=== PATIENT | female | born 1955 | race Caucasian/White ===

== ENCOUNTER → 2017-07-25 | Outpatient (CLI) | payer BC | END | disposition home or self-care (01) | LOC: LABWHC1 14:31 | PROVIDERS: ATTEND Internal Medicine Endocrinology, Diabetes & Metabolism | DX: R53.83 Other fatigue (principal) | CPT/HCPCS: 36415; 82024; 82533; 82607; 84146; 84443 ==

== ENCOUNTER → 2017-09-04 | Outpatient (CLI) | payer BC | END | disposition home or self-care (01) | LOC: LABWHC1 07:40 | PROVIDERS: ATTEND Internal Medicine Endocrinology, Diabetes & Metabolism | DX: R53.83 Other fatigue (principal) | CPT/HCPCS: 36415; 84443 ==

== ENCOUNTER → 2018-02-18 | Outpatient (CLI) | payer BC ==
--- NOTE | 2018-02-18 16:02 | US ---
EXAMINATION TYPE: US pelvic complete DATE OF EXAM: 02/18/2018 COMPARISON: CT 2016 CLINICAL HISTORY: R14.0 abd bloating/distention; hysterectomy; patient stated still has ovaries, and had bladder and bowel suspension with mesh; 2 months prior felt ripping sensation right pelvis to lef t pelvis; UTI TECHNIQUE: Transvaginal (TV) and Transabdominal (TA) . Transabdominal sonographic images of the pel vis were acquired. Transvaginal sonographic images were medically necessary to better assess the fol lowing anatomy: ovaries. Date of LMP: NA EXAM MEASUREMENTS: Uterus: surgically removed Endometrial Stripe: surgically removed Right Ovary: 1.7 x 1.5 x 1.5 cm Left Ovary: not seen TA or TV US 1. Right Ovary: large cyst = 1.4 x 1.2 x 1.3cm with mural wall changes; color flow is seen in periph antonietta however, PW Doppler not well assessed due to small vessels in ovary 2. Left Ovary: not seen 3. Bilateral Adnexa: wnl 4. Posterior cul-de-sac: wnl IMPRESSION: 1. Complex cyst right ovary with mural nodularity. Short-term follow-up study in 6 weeks is advised.
== END | disposition home or self-care (01) ==
LOC: RADUSWWP 15:01
PROVIDERS: ATTEND Family Medicine
DX: N83.291 Other ovarian cyst, right side (principal)
CPT/HCPCS: 76830; 76856

== ENCOUNTER → 2018-04-02 | Outpatient (CLI) | payer BC ==
--- NOTE | 2018-04-02 08:36 | XR ---
Right knee HISTORY: Pain and swelling, osteoarthritis 3 views of the right knee on 4 images There is tricompartmental marginal spurring. Joint space loss is present additionally. There may be a joint effusion. Subchondral sclerosis present in the lateral compartment more than medial. Alignment and bone mineralization are maintained. IMPRESSION: Osteoarthritis.
--- NOTE | 2018-04-02 12:32 | US ---
EXAMINATION TYPE: US pelvis complete transvag DATE OF EXAM: 04/02/2018 COMPARISON: US 02/18/2018 CLINICAL HISTORY: R10.9 Abd Pain, N83.291 Ovarian Cyst,M17.1 OA. TECHNIQUE: . Transabdominal sonographic images of the pelvis were acquired. Transvaginal sonographi c images were medically necessary to better assess the following anatomy: Ovaries Date of LMP: 10-12 years ago EXAM MEASUREMENTS: Uterus: Surgically absent Endometrial Stripe: Surgically absent Right Ovary: 1.3 x 0.9 x 1.3 cm Left Ovary: 2.1 x 1.0 x 1.7 cm 1. Uterus: Surgically absent 2. Endometrium: Surgically absent 3. Right Ovary: Within the right adnexa, there is an area that appears to be right ovary with small follicles visualized. Adjacent to this area, there is a thick walled cystic area visualized measuring 1.4 x 1.3 x 1.3 cm. This area previously measured 1.4 x 1.2 x 1.3 cm on 02/18/2018. The nodularity wit hin the internal wall remains present and stable. 4. Left Ovary: wnl as visualized, not visualized transvaginally 5. Bilateral Adnexa: wnl 6. Posterior cul-de-sac: wnl IMPRESSION: 1. Stable complex cyst right adnexal region. Neoplasm is not excluded. Consider additional workup.
--- NOTE | 2018-04-02 12:33 | US ---
EXAMINATION TYPE: US abdomen complete DATE OF EXAM: 04/02/2018 COMPARISON: CT 11/07/2016 CLINICAL HISTORY: R10.9 Abd Pain, N83.291 Ovarian Cyst,M17.1 OA. EXAM MEASUREMENTS: Liver Length: 15.3 cm Gallbladder Wall: 0.2 cm CBD: 0.45 cm Spleen: 9.3 cm Right Kidney: 10.1 x 4.6 x 4.1 cm Left Kidney: 10.1 x 5.1 x 5.1 cm Pancreas: Body/Tail obscured by overlying bowel gas. Visualized portions show no abnormalities Liver: Coarse, heterogeneous echotexture. Cyst visualized right lobe measuring 0.7 x 0.9 x 0.7 cm Gallbladder: wnl Evidence for sonographic Zuleta's sign: No CBD: wnl as visualized, distal portion obscured by bowel gas Spleen: wnl Right Kidney: No hydronephrosis or masses seen Left Kidney: No hydronephrosis or masses seen Upper IVC: wnl Abd Aorta: wnl as visualized, limited due to overlying bowel gas The liver is coarse and heterogeneous. IMPRESSION: 1. Small subcentimeter hepatic cyst. 2. Very mild fatty infiltration within the liver.
== END | disposition home or self-care (01) ==
LOC: RADUSWWP 07:53
PROVIDERS: ATTEND Family Medicine
DX: K76.89 Other specified diseases of liver (principal); K76.0 Fatty (change of) liver, not elsewhere classified; N83.8 Other noninflammatory disorders of ovary, fallopian tube and broad ligament; M17.11 Unilateral primary osteoarthritis, right knee
CPT/HCPCS: 76700; 76830; 76856

== ENCOUNTER → 2018-04-16 | Outpatient (CLI) | payer BC | END | disposition home or self-care (01) | LOC: LABWHC1 07:55 | PROVIDERS: ATTEND Internal Medicine Endocrinology, Diabetes & Metabolism | DX: E03.8 Other specified hypothyroidism (principal) | CPT/HCPCS: 36415; 84443 ==

== ENCOUNTER → 2018-06-03 | Outpatient (CLI) | payer BC | END | disposition home or self-care (01) | LOC: LABWHC1 09:56 | PROVIDERS: ATTEND Internal Medicine Endocrinology, Diabetes & Metabolism | DX: E03.8 Other specified hypothyroidism (principal) | CPT/HCPCS: 36415; 84443 ==

== ENCOUNTER → 2018-06-10 | Outpatient (CLI) | payer BC ==
--- NOTE | 2018-06-10 11:59 | XR ---
EXAM TYPE: LUMBAR SPINE X RAY SERIES COMPARISON: NONE HISTORY: Pain TECHNIQUE: 4 views are submitted. FINDINGS: Alignment is anatomic. The pedicles are intact. The transverse processes are intact. There is no s pondylolysis or spondylolisthesis. Bilateral changes of sacroiliitis. Degenerative disc disease at a ll levels most marked at L3-4, L4-5, and L5-S1 with facet arthropathy. IMPRESSION: 1. Multilevel degenerative disc disease and facet arthropathy with most marked changes at levels L3-S 1. Foraminal encroachment suspected. Correlate with MRI as clinically warranted. 2. Correlate for sacroiliitis.
== END | disposition home or self-care (01) ==
LOC: RADXRMAIN 11:26
PROVIDERS: ATTEND Family Medicine
DX: M51.37 Other intervertebral disc degeneration, lumbosacral region (principal); M46.97 Unspecified inflammatory spondylopathy, lumbosacral region
CPT/HCPCS: 72100

== ENCOUNTER → 2018-06-17 | Outpatient (CLI) | payer BC ==
--- NOTE | 2018-06-17 16:21 | CT ---
EXAMINATION TYPE: CT lumbar spine w con DATE OF EXAM: 06/17/2018 COMPARISON: 06/10/2018 lumbar spine radiographs. HISTORY: LOWER BACK PAIN AFTER FALL INJURY X [address] DLP: 1709.3 mGycm Automated exposure control for dose reduction was used. CONTRAST: CT scan of the lumbar is performed with IV Contrast, patient injected with 100 mL of Isovue 300. Enhanced CT of the lumbar spine was performed. Bone and soft tissue window settings are submitted as well as coronal and sagittal reconstructions. FINDINGS: There is very mild anterolisthesis (grade 1) of L4 on L5, likely on a degenerative basis. T here is no evidence of acute fracture or vertebral body height loss of the lumbar spine. Intervertebr al disc desiccation is seen at L4-L5 and L5-S1 with vacuum disc phenomenon. Lobulated Contour the kid neys may relate to prior injury or persistent lobulation. Spinal canal is limited on CT as is e valuation for focal disc herniation. L1-L2: Normal disc space height. No disc herniation protrusion or central stenosis. No facet joint arthropathy. No evidence for foraminal encroachment. L2-L3: There is a small broad-based disc bulge without spinal canal stenosis. There is resultant very mild neural foraminal narrowing bilaterally. L3-L4: There is a broad-based disc bulge and facet arthropathy resulting in mild bilateral neural for aminal narrowing, right slightly greater than left. No significant spinal canal stenosis. L4-L5: There is disc uncovering and a broad-based disc bulge with facet arthropathy resulting in mild to moderate bilateral neural foraminal narrowing. L5-S1: There is facet arthropathy and small posterior osteophyte in addition to a left eccentric disc bulge creating severe left neural foraminal narrowing and mild right neuroforaminal narrowing withou t significant spinal canal stenosis. IMPRESSION: 1. Multilevel degenerative disc disease resulting in severe left neural foraminal narrowing at L5-S1 and mild neural foraminal narrowing at this level. Other variable degree neural foraminal narrowing a s described above however would be more accurately assessed with MRI. 2. Grade 1 very mild anterolisthesis of L4 on L5, likely on a degenerative basis with no evidence of acute fracture of the lumbar spine.
== END | disposition home or self-care (01) ==
LOC: RADCTMAIN 14:50
PROVIDERS: ATTEND Family Medicine
DX: M99.73 Connective tissue and disc stenosis of intervertebral foramina of lumbar region (principal); M99.74 Connective tissue and disc stenosis of intervertebral foramina of sacral region; M43.16 Spondylolisthesis, lumbar region
CPT/HCPCS: 72132; Q9967

== ENCOUNTER → 2018-07-04 | Outpatient (CLI) | payer BC ==
--- NOTE | 2018-07-05 11:16 | BD ---
EXAMINATION TYPE: Axial Bone Density DATE OF EXAM: 07/04/2018 COMPARISON: NONE CLINICAL HISTORY: Height: 5 ft 5 in Weight: 230 FRAX RISK QUESTIONS: History of Fracture in Adulthood: yes RISK FACTORS HISTORY OF: Family History of Osteoporosis: YES Postmenopausal woman: PART HYST AGE 53 Take estrogen and/or progesterone medications: WAS ON HRT PATCH FOR ONE YEAR AFTER HYST Poor Health: YES MEDICATIONS: Thyroid Medications: YES Which medication: SYNTHROID How Lon MONTHS Additional Medications: SYNTHROID, TENORMIN, LASIX, MOBIC, POTASSIUM CHLORIDE, AMBIEN, ZAROXOLYN METO LAZONE Additional History: EXAM MEASUREMENTS: Bone mineral densitometry was performed using the [employer] System. Bone mineral density as measured about the Lumbar spine is: ----- L1-L4(G/cm2): 1.152 T Score Values are as follows: ----- L2: -0.4 ----- L3: -0.2 ----- L4: 0.2 ----- L1-L4: -0.2 Bone mineral density has: DECREASED -3.2 % since study of: 2006 Bone mineral density about the R hip (g/cm2): 0.901 Bone mineral density about the L hip (g/cm2): 0.912 T Score values are as follows: -----R Neck: -1.0 -----L Neck: -0.9 -----R Total: -0.1 -----L Total: 0.0 Bone mineral density has: DECREASED -9.4 % since study of: 2006 IMPRESSION: No evidence for osteoporosis or osteopenia. NOTE: T-SCORE=SD OF THE YOUNG ADULT MEAN.
--- NOTE | 2018-07-08 10:04 | MM ---
Reason for exam: screening (asymptomatic). Last mammogram was performed 2 years ago. History: Patient is postmenopausal. Family history of breast cancer in 2 paternal aunts. Took estrogen for 5 years beginning at age 50. Took progesterone for 5 years beginning at age 50. Physical Findings: A clinical breast exam by your physician is recommended on an annual basis and results should be correlated with mammographic findings. MG 3D Screening Mammo W/Cad Bilateral CC and MLO view(s) were taken. Prior study comparison: July 04, 2016, bilateral MG screening mammo w CAD. April 02, 2014, bilateral MG screening mammo w CAD. The breast tissue is heterogeneously dense. This may lower the sensitivity of mammography. Stable benign calcifications. There is no discrete abnormality. No significant changes when compared with prior studies. ASSESSMENT: Benign, BI-RAD 2 RECOMMENDATION: Routine screening mammogram of both breasts in 1 year.
== END | disposition home or self-care (01) ==
LOC: RADMAMWWP 12:44
PROVIDERS: ATTEND Obstetrics & Gynecology
DX: Z12.31 Encounter for screening mammogram for malignant neoplasm of breast (principal); Z13.820 Encounter for screening for osteoporosis; N95.1 Menopausal and female climacteric states
CPT/HCPCS: 77063; 77067; 77080

== ENCOUNTER → 2018-12-03 | Outpatient (CLI) | payer BC ==
[2018-12-03 17:43] LABS: T4, Free (Free Thyroxine) 1.7 ng/dL (0.80-1.80)
== END ==
LOC: LABWHC1 08:10
PROVIDERS: ATTEND Internal Medicine Endocrinology, Diabetes & Metabolism
DX: E03.8 Other specified hypothyroidism (principal)
CPT/HCPCS: 36415; 84439; 84443

== ENCOUNTER → 2019-02-11 | Outpatient (CLI) | payer MEDICARE | END | disposition home or self-care (01) | LOC: LABWHC1 07:43 | PROVIDERS: ATTEND Internal Medicine Endocrinology, Diabetes & Metabolism | DX: E03.8 Other specified hypothyroidism (principal) | CPT/HCPCS: 36415; 84443 ==

== ENCOUNTER 2019-03-13 10:12 | Inpatient (IN) | payer MEDICARE ==
[2019-03-13] MEDS ORDERED: IPRATROPIUM-ALBUTEROL 3 ML NEB INHALATION PRN (11:13)
--- NOTE | 2019-03-13 11:57 | XR ---
EXAMINATION TYPE: XR chest 2V DATE OF EXAM: 03/13/2019 COMPARISON: Prior chest x-ray 03/08/2015 HISTORY: Cough, difficulty breathing TECHNIQUE: Frontal and lateral views of the chest are obtained. FINDINGS: The patient is rotated. Prominent lung volume could be indicative of underlying COPD. Quest ion some posterior basilar airspace disease. Heart size within normal limits. No evident pleural effu fredo. Bronchial wall thickening is present. Pulmonary vascularity and blas within normal limits. IMPRESSION: Possible lower lobe pneumonia, bronchitis. Rotated exam.
[2019-03-13 12:10] LABS: Albumin 4.2 g/dL (3.5-5.0); Calcium 9.2 mg/dL (8.4-10.2); Potassium 3.3 mmol/L (3.5-5.1); Total Bilirubin 0.6 mg/dL (0.2-1.3); Total Protein 6.8 g/dL (6.3-8.2)
[2019-03-13 12:17] LABS: Basophils # (A) 0.1 k/uL (0-0.2); Basophils % (A) 1 %; Eosinophils # (A) 0.4 k/uL (0-0.7); Eosinophils % (A) 7 %; HGB 12.5 gm/dL (11.4-16.0); Lymphocytes # (A) 1.3 k/uL (1.0-4.8); Lymphocytes % (A) 20 %; MCH 29.9 pg (25.0-35.0); MCV 93.5 fL (80.0-100.0); Mean Platelet Volume 6.4; Monocytes # (A) 0.5 k/uL (0-1.0); Monocytes % (A) 8 %; Neutrophils # (A) 4.3 k/uL (1.3-7.7); Neutrophils % (A) 63 %; Platelet Count 259 k/uL (150-450); RBC 4.17 m/uL (3.80-5.40); RDW 13.2 % (11.5-15.5); WBC 6.8 k/uL (3.8-10.6)
[2019-03-13] MEDS: AZITHROMYCIN 500 MG in SODIUM CHLORIDE 0.9% 250 ML IVPB SCH (12:40)
[2019-03-13] MEDS: SODIUM CHLORIDE 0.9% 1,000 ML IV SCH (12:40)
[2019-03-13 13:33] VITALS: BMI 38.0
[2019-03-13] MEDS: methylPREDNISolone SOD SUCCI 125 MG/2 ML VIAL IV SCH (16:07)
[2019-03-13 17:27] LABS: Glucose,Whole Blood 101 mg/dL (75-99)
[2019-03-13] MEDS: INSULIN ASPART (NovoLOG) 100 UNIT/ML VIAL SQ SCH ×2 (17:50→20:45)
[2019-03-13 20:25] LABS: Glucose,Whole Blood 141 mg/dL (75-99)
[2019-03-13] MEDS: ZOLPIDEM 5 MG TAB PO PRN (20:45)
[2019-03-13] MEDS: ATENOLOL 25 MG TAB PO SCH (20:46)
[2019-03-13 22:00] LABS: Appearance,Urine Clear (Clear); Bacteria,Urine Rare /hpf; Bilirubin,Urine Negative (Negative); Blood,Urine Negative (Negative); Color,Urine Yellow; Glucose,Urine (UA) Negative (Negative); Ketones,Urine Trace (Negative); Leukocyte Esterase,Urine Trace (Negative); Mucus,Urine Rare /hpf; Nitrite,Urine Negative (Negative); Protein,Urine Negative (Negative); RBC,Urine 1 /hpf (0-5); Specific Gravity,Urine 1.013 (1.001-1.035); Squamous Epithelial Cell,Urine 1 /hpf (0-4); Urobilinogen,Urine <2.0 mg/dL (<2.0); WBC,Urine 1 /hpf (0-5)
[2019-03-14] MEDS: SODIUM CHLORIDE 0.9% 1,000 ML IV SCH ×2 (01:00→14:08)
[2019-03-14] MEDS: methylPREDNISolone SOD SUCCI 125 MG/2 ML VIAL IV SCH ×4 (01:00→23:18)
[2019-03-14] MEDS: LEVOTHYROXINE 100 MCG TAB PO SCH (05:38)
[2019-03-14 07:29] LABS: Glucose,Whole Blood 159 mg/dL (75-99)
[2019-03-14] MEDS: INSULIN ASPART (NovoLOG) 100 UNIT/ML VIAL SQ SCH ×4 (08:25→21:34)
[2019-03-14] MEDS: ATENOLOL 25 MG TAB PO SCH ×2 (08:25→21:35)
[2019-03-14] MEDS: CHOLECALCIFEROL 1,000 UNIT TAB PO SCH (08:25)
[2019-03-14] MEDS: POTASSIUM CHLORIDE ER 10 MEQ TAB.ER.PRT PO SCH (08:25)
[2019-03-14] MEDS: FUROSEMIDE 80 MG TAB PO SCH ×2 (08:25→16:23)
[2019-03-14] MEDS: ASCORBIC ACID 500 MG TAB PO SCH (08:25)
[2019-03-14] MEDS: PANTOPRAZOLE 40 MG TABLET PO SCH (08:25)
[2019-03-14] MEDS: MELOXICAM 7.5 MG TAB PO SCH (08:25)
[2019-03-14] MEDS ORDERED: NON-FORMULARY DRUG (Garlic [Garlic] 1 TAB) PO SCH (09:00)
[2019-03-14] MEDS: AZITHROMYCIN 500 MG in SODIUM CHLORIDE 0.9% 250 ML IVPB SCH (09:07)
[2019-03-14 10:25] LABS: ALT 26 U/L (9-52); AST 28 U/L (14-36); Albumin 3.8 g/dL (3.5-5.0); Alkaline Phosphatase 94 U/L (38-126); Anion Gap 9 mmol/L; Blood Urea Nitrogen 14 mg/dL (7-17); Calcium 9.4 mg/dL (8.4-10.2); Carbon Dioxide 25 mmol/L (22-30); Chloride 105 mmol/L (98-107); Glucose 218 mg/dL (74-99); Potassium 3.5 mmol/L (3.5-5.1); Sodium 139 mmol/L (137-145); Total Bilirubin 0.4 mg/dL (0.2-1.3); Total Protein 6.4 g/dL (6.3-8.2)
[2019-03-14 10:42] LABS: Basophils % (A) 0 %; Eosinophils % (A) 0 %; HCT 37.6 % (34.0-46.0); HGB 12.7 gm/dL (11.4-16.0); Lymphocytes % (A) 13 %; MCH 31.4 pg (25.0-35.0); MCHC 33.9 g/dL (31.0-37.0); MCV 92.7 fL (80.0-100.0); Monocytes # (A) 0.1 k/uL (0-1.0); Monocytes % (A) 1 %; Neutrophils # (A) 6.6 k/uL (1.3-7.7); Neutrophils % (A) 84 %; Platelet Count 286 k/uL (150-450); RBC 4.05 m/uL (3.80-5.40); RDW 13.5 % (11.5-15.5); WBC 7.8 k/uL (3.8-10.6)
--- NOTE | 2019-03-14 11:42 | HP ---
HISTORY AND PHYSICAL CHIEF COMPLAINT: A 64-year-old white female admitted with acute hypoxemic respiratory distress, cough, congestion, shortness of breath. Despite failing outpatient treatment, updraft treatments, she became significantly short of breath and dizzy spells and nearly passing out when she coughs, at which time she was admitted to the hospital for bronchopneumonia/asthma exacerbation and her syncope. PAST MEDICAL HISTORY: Hypertension, asthma, hypothyroidism, osteoarthritis, obesity, GERD, insomnia, allergic rhinitis. MEDICATIONS: See list. 14 POINT REVIEW OF SYSTEMS: As mentioned above. Lungs show wheeze and rhonchi x4. Scattered severe machine gun- type cough with near-syncope. Integument, poor skin turgor, poor mucous membranes, cardiovascular, S1, S2. Vitals are reviewed. Psych, anxious, nervous. Endocrine, BMI is over 40. Hematology, negative Homans. Ophthalmologic, pupils equal, round, reactive to light and accommodation. ASSESSMENT: Tracheobronchitis and pneumonia on chest x-ray. Community-acquired pneumonia, acute hypoxemic respiratory distress, asthma exacerbation, history hypothyroidism, hypokalemia. PLAN: IV steroids, IV antibiotics. Accu-Chek protocol. Replace potassium, updraft treatments. Will see how the patient does within next 24 to 48 hours with her breathing. Continue current treatments. Treat for community-acquired pneumonia with Rocephin, azithromycin, IV Solu-Medrol, DuoNeb updrafts. MMISABELLE / ARELI: [id number] /
[2019-03-14 12:24] LABS: Glucose,Whole Blood 197 mg/dL (75-99)
[2019-03-14] MEDS: DOCUSATE 100 MG CAP PO SCH ×2 (14:09→21:35)
[2019-03-14] MEDS ORDERED: Potassium Replacement Protocol 1 EACH MISC MISCELLANE PRN (14:12)
--- NOTE | 2019-03-14 14:16 | P.PN ---
Subjective Progress Note Date: 03/14/19 This is a 64-year-old female admitted with acute hypoxic respiratory failure, tracheobronchitis, pneumonia and multiple other medical issues. Maintained on nebulized bronchodilators, steroids, Rocephin with significant clinical improvement. Complains of some skeletal soreness secondary to coughing. Non productive cough. Tested negative for influenza. Afebrile, normal WBC. maintaining O2 sats of 98% on room air. Mildly elevated blood sugars, steroid- induced. Potassium 3.5. Objective - Vital Signs Vital signs: Vital Signs Temp 98.1 F 03/13/19 20:58 Pulse 70 03/13/19 20:58 Resp 18 03/13/19 20:58 BP 130/71 03/13/19 20:58 Pulse Ox 96 03/13/19 20:58 Intake & Output 03/13/19 03/13/19 03/14/19 06:59 18:59 06:59 Weight 106.8 kg Other: # Voids 2 2 - Exam PHYSICAL EXAM: VITAL SIGNS: As above GENERAL: Sitting up at side of bed, no acute distress HEENT: Conjunctivae normal. eyes normal. Oral mucosa moist NECK: No JVD. No thyroid enlargement. No LNs CARDIOVASCULAR: S1, S2 regular. No murmur RESPIRATION: Breath sounds diminished in the bases. No rhonchi or crackles. Fine expiratory wheeze. ABDOMEN: Soft, nontender. No guarding. no masses palpable. Bowel sounds heard. LEGS: Mild edema. Poor skin turgor. PSYCHIATRY: Alert and oriented -3, mood and affect normal. NERVOUS SYSTEM: Cranial N 2-12 grossly normal. Moves all 4 limbs. No focal d eficits. Skin: no lesions, no rash - Labs CBC & Chem 7: 03/14/19 09:21 03/14/19 09:21 Labs: Abnormal Lab Results - Last 24 Hours (Table) 03/13/19 03/13/19 03/13/19 Range/Units 11:20 17:26 20:24 Potassium 3.3 L (3.5-5.1) mmol/L POC Glucose (mg/dL) 101 H 141 H (75-99) mg/dL Urine Ketones (Negative) Ur Leukocyte Esterase (Negative) Urine Bacteria (None) /hpf Urine Mucus (None) /hpf 03/13/19 Range/Units 21:56 Potassium (3.5-5.1) mmol/L POC Glucose (mg/dL) (75-99) mg/dL Urine Ketones Trace H (Negative) Ur Leukocyte Esterase Trace H (Negative) Urine Bacteria Rare H (None) /hpf Urine Mucus Rare H (None) /hpf Assessment and Plan Assessment: -Tracheobronchitis with pneumonia, community-acquired, acute asthma exacerbation -Acute hypoxic respiratory failure secondary to the above -Hypertension -Hypothyroidism -Osteoarthritis -Gastroesophageal reflux disease -Obesity, BMI 38 -Hypokalemia, improved Plan: Continue on current medication regime ,monitoring and symptomatic treatment. Maintain nebulized bronchodilators, IV steroids and antibiotics. Potassium replacement protocol ordered. Close monitoring of electrolytes with repeat labs ordered for a.m. increase ambulation as tolerated. Discharge planning in progress for tomorrow. The impression and plan of care has been dictated as directed. : I performed a history and examination of this patient, discussed the same with the dictator. I agree with the dictator's note ,documented as a scribe. Any additional findings or plans will be noted.
[2019-03-14 16:36] LABS: Glucose,Whole Blood 126 mg/dL (75-99)
[2019-03-14 20:37] LABS: Glucose,Whole Blood 187 mg/dL (75-99)
[2019-03-14] MEDS: ZOLPIDEM 5 MG TAB PO PRN (21:35)
[2019-03-15 06:03] LABS: Albumin 3.8 g/dL (3.5-5.0); Calcium 9.5 mg/dL (8.4-10.2); Potassium 3.5 mmol/L (3.5-5.1); Total Bilirubin 0.4 mg/dL (0.2-1.3); Total Protein 6.2 g/dL (6.3-8.2)
[2019-03-15] MEDS: SODIUM CHLORIDE 0.9% 1,000 ML IV SCH (06:36)
[2019-03-15] MEDS: PANTOPRAZOLE 40 MG TABLET PO SCH (06:37)
[2019-03-15] MEDS: LEVOTHYROXINE 100 MCG TAB PO SCH (06:37)
[2019-03-15 06:41] LABS: Glucose,Whole Blood 143 mg/dL (75-99)
[2019-03-15] MEDS: INSULIN ASPART (NovoLOG) 100 UNIT/ML VIAL SQ SCH ×2 (06:44→12:23)
[2019-03-15] MEDS: AZITHROMYCIN 500 MG in SODIUM CHLORIDE 0.9% 250 ML IVPB SCH (08:13)
[2019-03-15] MEDS: methylPREDNISolone SOD SUCCI 125 MG/2 ML VIAL IV SCH (08:15)
[2019-03-15] MEDS: POTASSIUM CHLORIDE ER 10 MEQ TAB.ER.PRT PO SCH (08:17)
[2019-03-15] MEDS: MELOXICAM 7.5 MG TAB PO SCH (08:18)
[2019-03-15] MEDS: DOCUSATE 100 MG CAP PO SCH (08:18)
[2019-03-15] MEDS: ASCORBIC ACID 500 MG TAB PO SCH (08:18)
[2019-03-15] MEDS: FUROSEMIDE 80 MG TAB PO SCH (08:18)
[2019-03-15] MEDS: ATENOLOL 25 MG TAB PO SCH (08:19)
[2019-03-15] MEDS: CHOLECALCIFEROL 1,000 UNIT TAB PO SCH (08:19)
[2019-03-15 08:38] VITALS: RESP 16
[2019-03-15 11:58] LABS: Glucose,Whole Blood 104 mg/dL (75-99)
[2019-03-15 12:42] VITALS: BP 109/67; PULSE 70; TEMP 98.1
[2019-03-15] MEDS ORDERED: methylPREDNISolone SOD SUCCI 40 MG/ML 1 ML VIAL IV SCH (16:00)
--- NOTE | 2019-03-19 15:30 | CDI ---
Documentation Clarification Form Date: 03/19/19 From: BENIGNO Villanueva Phone: If you have question, contact Nadine Allen at [phone] M-F 8:30 am to 6pm Admit Date: 03/13/2019 10:21:00 AM Patient Name: Aleta Us Visit Number: [id number] Discharge Date: 03/15/2019 2:31:00 PM ATTENTION: The Clinical Documentation Specialists (CDI) and [facility] Coding Staff appreciate your assistance in clarifying documentation. Please respond to the clarification below the line at the bottom and electronically sign. The CDI & [facility] Coding staff will review the response and follow-up if needed. Please note: Queries are made part of the Legal Health Record. If you have any questions, please contact the author of this message via ITS. Dr. Myron Downs The patient presented with acute hypoxemic respiratory distress, cough, congestion and shortness of breath. Per the H&P she is diagnosed with tracheobronchitis, pneumonia and asthma exacerbation. Plan is to treat with IV steroids, IV antibiotics and DueNeb updrafts. She maintained O2 sats of 98% on room air. H&P states acute hypoxemic respiratory distress Progress Notes 5/3 assessment states acute hypoxic respiratory failure In your professional opinion, can you please clarify the conflicting documentation. Specificity of the respiratory decompensation Acute Respiratory Distress Acute Respiratory Failure Acute Respiratory Insufficiency Other Diagnosis, please specify Unable to determine MTDD
--- NOTE | 2019-03-22 21:48 | DS ---
DISCHARGE SUMMARY ADDENDUM: Please add: DISCHARGE SUMMARY: Acute respiratory distress. MMODL / IJN: [id number] /
--- NOTE | 2019-03-24 05:09 | DS ---
DISCHARGE SUMMARY DATE OF ADMISSION: 03/13/2019 DATE OF DISCHARGE: 03/15/2019 DISCHARGE MEDICATIONS: 1. Garlic 1 tab daily. 2. Tenormin 25 b.i.d. 3. Synthroid 100 mcg daily. 4. Lasix 80 mg b.i.d. 5. Mobic 15 mg daily. 6. K-Dur 20 mEq daily. 7. Ambien 5 mg at bedtime. 8. Omeprazole 20 mg daily. 9. Vitamin D 1000 units daily. 10.Vitamin C 500 mg daily. CONDITION: Stable. PROGNOSIS: Guarded. Ambulate as tolerated. HOSPITAL COURSE OF EVENTS: A 64-year-old white female was admitted to the hospital with cough, congestion, shortness of breath, dyspnea and wheezing. Patient was stabilized with IV antibiotics, IV steroids, updraft treatments, improved over the next 24 to 48 hours. The patient was stabilized and sent home community-acquired pneumonia, bronchospasm, tracheobronchitis. MMODL / IJN: [id number] /
== END 2019-03-15 14:31 | disposition home or self-care (01) | DRG 194 ==
LOC: 4MS4W 10:21 → 6PED 03-14 11:03
PROVIDERS: ADMIT Family Medicine; ATTEND Family Medicine
DX: J18.9 Pneumonia, unspecified organism (principal); J45.901 Unspecified asthma with (acute) exacerbation; M19.90 Unspecified osteoarthritis, unspecified site; G47.00 Insomnia, unspecified; E03.9 Hypothyroidism, unspecified; I10 Essential (primary) hypertension; E87.6 Hypokalemia; E66.9 Obesity, unspecified; J30.9 Allergic rhinitis, unspecified; R73.9 Hyperglycemia, unspecified; T38.0X5A Adverse effect of glucocorticoids and synthetic analogues, initial encounter; Z68.38 Body mass index [BMI] 38.0-38.9, adult
CPT/HCPCS: 71046; 80053; 81001; 83605; 85025; 87502

== ENCOUNTER 2019-06-26 12:05 | Inpatient (IN) | payer MEDICARE ==
[2019-06-26] MEDS ORDERED: BARIUM SULFATE 450 ML ORAL.SUSP BOTTLE PO PRN (12:27)
--- NOTE | 2019-06-26 13:00 | XR ---
EXAMINATION TYPE: XR abdomen 2V DATE OF EXAM: 06/26/2019 COMPARISON: NONE HISTORY: Abdominal pain TECHNIQUE: 2 view abdominal series FINDINGS: The osseous structures are intact. The bowel gas pattern is nonspecific. Linear changes left lung ba se most typical atelectasis density overlying the right paraspinal region may represent a ureteral ca lculus measuring 5 mm in diameter. Arthropathy of the hips. Calcifications in the pelvis are likely vascular. Hypertrophic and degenerat sejal change of the vertebral column. . IMPRESSION: 1. Nonspecific abdomen. Right paraspinal calcification at the L3-4 level could potentially be in the course of the ureter correlate clinically.
[2019-06-26] MEDS ORDERED: ONDANSETRON 4 MG/2 ML VIAL IVP PRN (13:40)
[2019-06-26] MEDS: SODIUM CHLORIDE 0.9% 1,000 ML IV SCH (13:51)
[2019-06-26] MEDS: HYDROmorphone 0.5 MG/0.5 ML SYRINGE IVP PRN ×2 (13:56→17:36)
[2019-06-26 15:18] LABS: Albumin 3.7 g/dL (3.5-5.0); Calcium 8.8 mg/dL (8.4-10.2); Potassium 2.9 mmol/L (3.5-5.1); Total Bilirubin 0.9 mg/dL (0.2-1.3); Total Protein 6.4 g/dL (6.3-8.2)
[2019-06-26 15:26] LABS: Basophils # (A) 0.1 k/uL (0-0.2); Basophils % (A) 0 %; Eosinophils # (A) 0.1 k/uL (0-0.7); Eosinophils % (A) 1 %; HCT 35.4 % (34.0-46.0); HGB 12.1 gm/dL (11.4-16.0); Lymphocytes # (A) 1.9 k/uL (1.0-4.8); Lymphocytes % (A) 10 %; MCH 31.5 pg (25.0-35.0); MCHC 34.2 g/dL (31.0-37.0); MCV 92.1 fL (80.0-100.0); Mean Platelet Volume 6.8; Monocytes # (A) 1.1 k/uL (0-1.0); Monocytes % (A) 6 %; Neutrophils % (A) 82 %; Platelet Count 314 k/uL (150-450); RBC 3.84 m/uL (3.80-5.40); RDW 13.8 % (11.5-15.5); WBC 18.2 k/uL (3.8-10.6)
[2019-06-26] MEDS ORDERED: Potassium Replacement Protocol 1 EACH MISC MISCELLANE PRN (15:30)
[2019-06-26] MEDS: POTASSIUM CHLORIDE ER 20 MEQ TAB.ER PO SCH ×3 (15:48→19:25)
[2019-06-26] MEDS: POTASSIUM CHLORIDE 20 MEQ in WATER FOR INJECTION 1 100ML.BAG IVPB SCH ×3 (15:49→20:34)
[2019-06-26 16:30] LABS: Appearance,Urine Clear (Clear); Bacteria,Urine Occasional /hpf; Bilirubin,Urine Negative (Negative); Blood,Urine Negative (Negative); Color,Urine Yellow; Glucose,Urine (UA) Negative (Negative); Hyaline Casts,Urine 4 /lpf (0-2); Ketones,Urine Negative (Negative); Leukocyte Esterase,Urine Small (Negative); Mucus,Urine Rare /hpf; Nitrite,Urine Positive (Negative); Protein,Urine Negative (Negative); RBC,Urine 1 /hpf (0-5); Squamous Epithelial Cell,Urine <1 /hpf (0-4); Urobilinogen,Urine <2.0 mg/dL (<2.0); WBC,Urine 12 /hpf (0-5)
[2019-06-26] MEDS: IOPAMIDOL CONTRAST (ORAL USE) VIAL PO PRN ×2 (16:57→17:38)
--- NOTE | 2019-06-26 18:40 | CT ---
EXAMINATION TYPE: CT abdomen pelvis w con DATE OF EXAM: 06/26/2019 COMPARISON: 11/07/2016 HISTORY: Abominal pain. Hx bladder sx, hysterectomy, tubal CT DLP: 1922.7 mGycm Automated exposure control for dose reduction was used. TECHNIQUE: Helical acquisition of images was performed from the lung bases through the pelvis. CONTRAST: Performed with Oral Contrast and with IV Contrast, patient injected with 100 mL of Isovue 300. FINDINGS: Lung bases are clear. There is no pleural effusion. Heart size is normal. There is no pericardial eff usion. Stomach appears normal. Liver spleen gallbladder appear normal. Bile ducts are not dilated. Th ere is some edema at the inferior aspect of the pancreatic head. There is a duodenal diverticulum not ed adjacent to the edema. There is no adrenal mass. Kidneys show satisfactory contrast opacification. There is no hydronephrosi s. Ureters are not dilated. Bladder distends smoothly. There is small left inguinal hernia that conta ins fat. There is no free fluid in the pelvis. There are a few sigmoid diverticula. There is no evide nce of diverticulitis. Appendix appears normal. There is no mesenteric edema. There is no ascites or free air. There is no sign of a bowel obstruction. Lumbar spine is intact. There is no compression fracture. Bony pelvis appears intact. IMPRESSION: THERE IS SOME EDEMA AND FAT STRANDING AROUND THE INFERIOR ASPECT OF THE PANCREATIC HEAD AND ADJACENT TO THE THIRD PART OF THE DUODENUM. THIS IS A CHANGE COMPARED TO OLD EXAM. THIS COULD RELATE TO FOCAL PANCREATITIS. Duodenal ulcer with perforation is also possible.
[2019-06-27] MEDS: SODIUM CHLORIDE 0.9% 1,000 ML IV SCH ×3 (03:06→22:23)
[2019-06-27] MEDS: POTASSIUM CHLORIDE ER 20 MEQ TAB.ER PO SCH ×4 (03:06→16:31)
--- NOTE | 2019-06-27 05:31 | CONS ---
CONSULTATION DATE OF SERVICE: 06/26/2019 REASON FOR CONSULTATION: Sepsis. HISTORY OF PRESENT ILLNESS: The patient is a 64-year-old female who has been admitted directly to the hospital from Dr. Downs's office for evaluation of her abdominal pain. The patient has been complaining of abdominal pain that had been from the epigastric to the umbilical area. The pain has been going on for the last few days. The patient described the pain to be more of a dull aching to sharp in nature with no significant radiation. The patient did have associated nausea but no vomiting. Eating of food or drink anything makes the pain to get worse. She did have some episode for nausea with it. The patient denies high-grade fever however did have some chills with these symptoms. The patient has been admitted to the hospital. The patient was started on Rocephin. Infectious Disease was consulted for possible sepsis. Workup so far including abdominal x-rays, which shows nonspecific abdomen, right paraspinal calcification at the L4 level. The patient's white count elevated 18.2. UA was mildly positive. Liver enzymes are normal so far. REVIEW OF SYSTEMS: Positive points have been mentioned in HPI. Rest of the systems are negative. PAST MEDICAL HISTORY: Her past medical history is significant for hypertension, asthma, hypothyroidism, osteoarthritis, obesity, gastroesophageal reflux disease, insomnia and allergic rhinitis. SOCIAL HISTORY: Patient denies smoking, drinking or drug use. FAMILY HISTORY: No pertinent findings noticed. ALLERGIES: No known drug allergies. MEDICATION: Medications currently include the patient is on Rocephin 1 gram daily. She is on Dilaudid, Zofran, K-Dur, and IV fluid. PHYSICAL EXAMINATION: On examination, blood pressure is 126/62 with a pulse of 79, temperature 98.5. He is 96% on room air. General description is an elderly female lying in bed in no distress. No tachypnea or accessory muscle of respiration use. HEENT examination shows no pallor or scleral icterus. Oral mucous membrane is dry with no pharyngeal erythema or thrush. NECK: Tracheal central. No thyromegaly. LUNGS: Unlabored breathing, clear to auscultation anteriorly. No wheeze or crackle. HEART: S1, S2. Regular rate and rhythm. No added sounds. ABDOMEN: Soft. The patient is tender in the right upper quadrant area. No guarding. No rigidity. No organomegaly. EXTREMITIES: No edema of feet. SKIN EXAMINATION: No rash or mass palpable. NEUROLOGICAL: Patient is awake, alert, oriented x3. Mood and affect normal. LABS: Hemoglobin is 12.1, white count 18.2, BUN of 13, creatinine 0.87. Potassium low at 2.9. Liver enzymes are normal. DIAGNOSTIC IMPRESSION AND PLAN: Patient admitted to the hospital with acute abdominal pain mostly in the epigastric abdominal area with concern for possible gastritis versus pancreatitis or related abnormality. With her elevated white count, will need to cover for enteric gram- negative with likely source of this infection. PLAN: 1. Await a CT of abdomen and pelvis which has been ordered with contrast. 2. Rocephin 1 gram daily to continue medically while waiting for the workup to be complete. 3. We will obtain blood cultures. 4. We will follow up on clinical condition and culture to further adjust medication if needed. Thank you for this consultation. Will follow this patient along with you. MMODL / IJN: [id number] /
[2019-06-27] MEDS: LEVOTHYROXINE 100 MCG TAB PO SCH (05:46)
[2019-06-27] MEDS: HYDROmorphone 0.5 MG/0.5 ML SYRINGE IVP PRN ×2 (05:47→22:26)
[2019-06-27] MEDS ORDERED: PANTOPRAZOLE 40 MG TABLET PO SCH (07:30)
[2019-06-27 07:59] LABS: Basophils # (A) 0.1 k/uL (0-0.2); Basophils % (A) 0 %; Eosinophils # (A) 0.3 k/uL (0-0.7); Eosinophils % (A) 2 %; HCT 31.9 % (34.0-46.0); Lymphocytes # (A) 2.2 k/uL (1.0-4.8); Lymphocytes % (A) 15 %; MCH 31.8 pg (25.0-35.0); MCHC 34.4 g/dL (31.0-37.0); MCV 92.5 fL (80.0-100.0); Mean Platelet Volume 6.8; Monocytes # (A) 0.7 k/uL (0-1.0); Monocytes % (A) 5 %; Neutrophils # (A) 10.8 k/uL (1.3-7.7); Neutrophils % (A) 76 %; Platelet Count 272 k/uL (150-450); RBC 3.45 m/uL (3.80-5.40); RDW 13.8 % (11.5-15.5); WBC 14.2 k/uL (3.8-10.6)
[2019-06-27] MEDS: POTASSIUM CHLORIDE ER 10 MEQ TAB.ER.PRT PO SCH (08:10)
[2019-06-27] MEDS: ATENOLOL 25 MG TAB PO SCH ×2 (08:10→22:18)
[2019-06-27] MEDS: FUROSEMIDE 40 MG TAB PO SCH ×2 (08:10→22:18)
[2019-06-27 08:14] LABS: Albumin 3.1 g/dL (3.5-5.0); Calcium 8.4 mg/dL (8.4-10.2); Potassium 3.5 mmol/L (3.5-5.1); Total Bilirubin 0.8 mg/dL (0.2-1.3); Total Protein 5.6 g/dL (6.3-8.2)
[2019-06-27] MEDS ORDERED: MELOXICAM 7.5 MG TAB PO SCH (09:00)
--- NOTE | 2019-06-27 12:22 | P.GSCN ---
History of Present Illness Consult date: 06/27/19 Reason for Consult: abdominal pain Requesting physician: Myron Downs History of present illness: CHIEF COMPLAINT: abdominal pain HISTORY OF PRESENT ILLNESS: 64-year-old female who was directly admitted from Dr. Downs's office yesterday secondary to abdominal pain. Patient reports she has been having abdominal pain for approximately one week. She reports her pain is in the epigastric region and also suprapubic region. she reports nausea has resolved since admission. Denies vomiting. Denies fevers but reports having chills at home. Reports having a normal bowel movement yesterday. Reports episode of diarrhea since admission. No previous EGD. Last colonoscopy was approximately 3 or 4 years ago. She states this was normal with the exception of having a few polyps removed. Reports mother has a history of diverticulitis. Patient denies alcohol use. Takes Mobic daily. Denies use of OTC NSAIDS. PAST MEDICAL HISTORY: See list. PAST SURGICAL HISTORY: See list. SOCIAL HISTORY: No illicit drug use. REVIEW OF SYSTEMS: CONSTITUTIONAL: Denies fever. Reports chills HEENT: Denies blurred vision, vision changes, or eye pain. Denies hemoptysis CARDIOVASCULAR: Denies chest pain or pressure. RESPIRATORY: No shortness of breath. GASTROINTESTINAL: Refer to HPI for pertinent findings HEMATOLOGIC: Denies bleeding disorders. GENITOURINARY: Denies any blood in urine. SKIN: Denies pruitis. Denies rash. PHYSICAL EXAM: VITAL SIGNS: Reviewed. GENERAL: Well-developed in no acute distress. HEENT: No sclera icterus. Extraocular movements grossly intact. Moist buccal mucosa. Head is atraumatic, normocephalic. ABDOMEN: Obese. Soft. Nondistended. No tenderness with palpation of epigastric region. Tenderness with light palpation of suprapubic region. no peritoneal signs. NEUROLOGIC: Alert and oriented. Cranial nerves II through XII grossly intact. LABORATORY DATA: WBC on admission 18.2. Repeat 14.2. urinalysis positive nitrates, small leukocyte esterase, WBC 12 IMAGING: CT abdomen and pelvis: Small left inguinal hernia contains fat. No free fluid in the pelvis. There is a few sigmoid diverticula. No evidence of diverticulitis. Appendix appears normal. Liver spleen, gallbladder appear Normal. There is some edema at the inferior aspect of the pancreatic head. There is a duodenal diverticulum noted adjacent to the edema. Findings could be related to focal pancreatitis or duodenal ulcer with perforation also possible. ASSESSMENT: 1. Epigastric pain, possible duodenal ulcer per computed tomography scan 2. Suprapubic tenderness, may be secondary to abnormal UA 3. Chronic NSAID use with Mobic 4. diverticulosis, no evidence of acute diverticulitis 5. Leukocytosis PLAN: 1. Full liquid diet 2. Protonix 40mg IV BID 3. Discontinue Mobic 4. Continue antibiotics for abnormal UA 5. EGD scheduled with Dr. Loredo for Sunday. Nurse practitioner note has been reviewed by physician. Signing provider agrees with the documented findings, assessment, and plan of care. Past Medical History Past Medical History: Asthma, Hypertension, Pneumonia, Thyroid Disorder Additional Past Medical History / Comment(s): Bronchitis, arthritis in multiple joints, chronic low back pain, constipation, occasional bilateral lower leg edema, hypothyroid. History of Any Multi-Drug Resistant Organisms: None Reported Past Surgical History: Bladder Surgery, Hysterectomy, Tubal Ligation Additional Past Surgical History / Comment(s): Bladder suspension, rectocele, colonoscopy. Past Anesthesia/Blood Transfusion Reactions: Motion Sickness Additional Past Anesthesia/Blood Transfusion Reaction / Comm: Pt has received blood in past without reaction. Pt states she did have motion sickness as a child. Past Psychological History: Depression Additional Psychological History / Comment(s): Pt resides with her spouse. She is retired. She is independent. Smoking Status: Never smoker Past Drug Use History: None Reported - Past Family History Father Family Medical History: Myocardial Infarction (PA) Additional Family Medical History / Comment(s): Father had a PA in his 80's. He lived to be 98yrs old. Mother Family Medical History: Hyperlipidemia, Hypertension Additional Family Medical History / Comment(s): Mother has osteoporosis. She is 93 yrs old. Medications and Allergies Home Medications Medication Instructions Recorded Confirmed Type Ascorbic Acid [Vitamin C] 500 mg PO DAILY 03/13/19 06/26/19 History Atenolol [Tenormin] 25 mg PO BID 03/13/19 06/26/19 History Cholecalciferol [Vitamin D3 (25 1,000 unit PO DAILY 03/13/19 06/26/19 History Mcg = 1000 Iu)] Garlic 1 tab PO DAILY 03/13/19 06/26/19 History Levothyroxine Sodium [Synthroid] 100 mcg PO DAILY 03/13/19 06/26/19 History Meloxicam [Mobic] 15 mg PO DAILY 03/13/19 06/26/19 History Omeprazole 20 mg PO DAILY 03/13/19 06/26/19 History Potassium Chloride ER [K-Dur 10] 20 meq PO DAILY 03/13/19 06/26/19 History Zolpidem [Ambien] 5 mg PO HS PRN 03/13/19 06/26/19 History Furosemide [Lasix] 40 mg PO BID 06/26/19 06/26/19 History Allergies Allergy/AdvReac Type Severity Reaction Status Date / Time No Known Allergies Allergy Verified 06/26/19 15:00 Surgical - Exam Vital Signs Temp Pulse Resp BP Pulse Ox 98.5 F 79 18 126/62 96 06/26/19 12:34 06/26/19 12:34 06/26/19 12:34 06/26/19 12:34 06/26/19 12:34 Results - Labs 06/27/19 07:19 06/27/19 07:19 Abnormal Lab Results - Last 24 Hours (Table) 06/26/19 06/26/19 06/26/19 Range/Units 14:27 14:27 16:15 WBC 18.2 H (3.8-10.6) k/uL RBC (3.80-5.40) m/uL Hgb (11.4-16.0) gm/dL Hct (34.0-46.0) % Neutrophils # 15.0 H (1.3-7.7) k/uL Monocytes # 1.1 H (0-1.0) k/uL Potassium 2.9 L (3.5-5.1) mmol/L Carbon Dioxide 35 H (22-30) mmol/L Glucose 112 H (74-99) mg/dL Total Protein (6.3-8.2) g/dL Albumin (3.5-5.0) g/dL Urine Nitrite Positive H (Negative) Ur Leukocyte Esterase Small H (Negative) Urine WBC 12 H (0-5) /hpf Urine Bacteria Occasional H (None) /hpf Hyaline Casts 4 H (0-2) /lpf Urine Mucus Rare H (None) /hpf 06/27/19 06/27/19 06/27/19 Range/Units 00:43 07:19 07:19 WBC 14.2 H (3.8-10.6) k/uL RBC 3.45 L (3.80-5.40) m/uL Hgb 11.0 L (11.4-16.0) gm/dL Hct 31.9 L (34.0-46.0) % Neutrophils # 10.8 H (1.3-7.7) k/uL Monocytes # (0-1.0) k/uL Potassium 3.4 L (3.5-5.1) mmol/L Carbon Dioxide 31 H (22-30) mmol/L Glucose (74-99) mg/dL Total Protein 5.6 L (6.3-8.2) g/dL Albumin 3.1 L (3.5-5.0) g/dL Urine Nitrite (Negative) Ur Leukocyte Esterase (Negative) Urine WBC (0-5) /hpf Urine Bacteria (None) /hpf Hyaline Casts (0-2) /lpf Urine Mucus (None) /hpf Microbiology - Last 24 Hours (Table) 06/26/19 16:15 Urine Culture - Preliminary Urine,Voided Diabetes panel 06/26/19 06/27/19 06/27/19 Range/Units 14:27 00:43 07:19 Sodium 139 139 (137-145) mmol/L Potassium 2.9 L 3.4 L 3.5 (3.5-5.1) mmol/L Chloride 98 103 (98-107) mmol/L Carbon Dioxide 35 H 31 H (22-30) mmol/L BUN 13 10 (7-17) mg/dL Creatinine 0.87 0.92 (0.52-1.04) mg/dL Glucose 112 H 98 (74-99) mg/dL Calcium 8.8 8.4 (8.4-10.2) mg/dL AST 19 16 (14-36) U/L ALT 25 26 (9-52) U/L Alkaline Phosphatase 102 83 (38-126) U/L Total Protein 6.4 5.6 L (6.3-8.2) g/dL Albumin 3.7 3.1 L (3.5-5.0) g/dL Calcium panel 06/26/19 06/27/19 Range/Units 14:27 07:19 Calcium 8.8 8.4 (8.4-10.2) mg/dL Albumin 3.7 3.1 L (3.5-5.0) g/dL Pituitary panel 06/26/19 06/27/19 06/27/19 Range/Units 14:27 00:43 07:19 Sodium 139 139 (137-145) mmol/L Potassium 2.9 L 3.4 L 3.5 (3.5-5.1) mmol/L Chloride 98 103 (98-107) mmol/L Carbon Dioxide 35 H 31 H (22-30) mmol/L BUN 13 10 (7-17) mg/dL Creatinine 0.87 0.92 (0.52-1.04) mg/dL Glucose 112 H 98 (74-99) mg/dL Calcium 8.8 8.4 (8.4-10.2) mg/dL Adrenal panel 06/26/19 06/27/19 06/27/19 Range/Units 14:27 00:43 07:19 Sodium 139 139 (137-145) mmol/L Potassium 2.9 L 3.4 L 3.5 (3.5-5.1) mmol/L Chloride 98 103 (98-107) mmol/L Carbon Dioxide 35 H 31 H (22-30) mmol/L BUN 13 10 (7-17) mg/dL Creatinine 0.87 0.92 (0.52-1.04) mg/dL Glucose 112 H 98 (74-99) mg/dL Calcium 8.8 8.4 (8.4-10.2) mg/dL Total Bilirubin 0.9 0.8 (0.2-1.3) mg/dL AST 19 16 (14-36) U/L ALT 25 26 (9-52) U/L Alkaline Phosphatase 102 83 (38-126) U/L Total Protein 6.4 5.6 L (6.3-8.2) g/dL Albumin 3.7 3.1 L (3.5-5.0) g/dL
[2019-06-27] MEDS: PIPERACILLIN-TAZOBACTAM 3.375 GM in SODIUM CHLORIDE 0.9% 100 ML IVPB SCH ×2 (12:39→22:23)
--- NOTE | 2019-06-27 12:56 | HP ---
HISTORY AND PHYSICAL This 64-year-old white female came in with significant abdominal pain, severe in nature, bending over due to severe pain, abdominal pain and vomiting. She has large amounts of diarrhea. The pain was more from the umbilical area to the epigastric area, worsening over the past few days. She was nauseous. She has had some rigors and chills. She is started on IV Rocephin for possible UTI, possible gastroenteritis, elevated white count 18.2. Patient is found to have severe low potassium 2.4. Potassium is replaced. REVIEW OF SYSTEMS: Fourteen-point review of systems negative except for mentioned above. PAST MEDICAL HISTORY: History of hypertension, asthma, hypothyroidism, osteoarthritis, obesity, GERD, insomnia, allergic rhinitis. SOCIAL HISTORY: Denies smoking or using drugs. ALLERGIES: Negative. PHYSICAL EXAMINATION: Blood pressure is 20s over 60s. Pulse is 70s. Temp 98.5. O2 is 96% on room air. Elderly white female, obese looking. BMI is over 40. LUNGS: Are clear. NECK: Supple. No mass. HEART: Regular rate and rhythm. ABDOMEN: Tenderness to right upper quadrant area. No guarding. No rigidity. EXTREMITIES: No cyanosis of the feet. PSYCH: Fair mood and affect. NEUROLOGIC: Alert and oriented x3. LABS: Labs are reviewed. Potassium is 2.9. ASSESSMENT: 1. Acute abdominal pain, gastritis versus pancreatitis. 2. Leukocytosis. 3. Hypokalemia. Cultures have been ordered. Surgical and Infectious Disease consults have been ordered. Continue home medications. Empiric antibiotics. Replace potassium due to severe hypokalemia. MMODL / IJN: [id number] /
--- NOTE | 2019-06-27 14:05 | PN ---
PROGRESS NOTE DATE OF SERVICE: 06/27/2019 REASON FOR FOLLOWUP: Abdominal pain and a question of pancreatitis. INTERVAL HISTORY: The patient is currently afebrile. The patient is still complaining of pain to the abdominal area, mostly in the epigastric area, though no worsening in intensity. No nausea or vomiting. She has developed diarrhea apparently yesterday. No chest pain, shortness of breath or cough. PHYSICAL EXAMINATION: On examination, blood pressure is 104/59 with the pulse of 68, temperature 97.8. She is 97% on room air. General description is an elderly female lying in bed in no distress. RESPIRATORY SYSTEM: Unlabored breathing, clear to auscultation anteriorly. HEART: S1, S2. Regular rate and rhythm. ABDOMEN: Soft, mildly tender in the epigastric area. No guarding or rigidity. EXTREMITIES: No edema of the feet. LABS: Hemoglobin is 11, white count 14.2, BUN of 10, creatinine 0.92. DIAGNOSTIC IMPRESSION AND PLAN: Patient with abdominal pain secondary to pancreatitis with some inflammation of the colon has been seen as well, now with developing diarrhea stool studies will be obtained. Antibiotic has been broadened to Zosyn. Surgery is on the case. Monitor the clinical course closely. MMODL / IJN: [id number] / MTDChris
[2019-06-27] MEDS ORDERED: Potassium Replacement Protocol 1 EACH MISC MISCELLANE PRN (14:43)
[2019-06-27] MEDS: PANTOPRAZOLE 40 MG/10 ML VIAL IVP SCH (22:18)
[2019-06-27] MEDS: ZOLPIDEM 10 MG TAB PO PRN (22:18)
[2019-06-28] MEDS: PIPERACILLIN-TAZOBACTAM 3.375 GM in SODIUM CHLORIDE 0.9% 100 ML IVPB SCH ×3 (05:12→20:36)
[2019-06-28 07:13] LABS: Calcium 8.4 mg/dL (8.4-10.2); Potassium 3.7 mmol/L (3.5-5.1); Total Bilirubin 0.7 mg/dL (0.2-1.3); Total Protein 5.5 g/dL (6.3-8.2)
[2019-06-28 07:22] LABS: Basophils # (A) 0.1 k/uL (0-0.2); Basophils % (A) 1 %; Eosinophils # (A) 0.4 k/uL (0-0.7); Eosinophils % (A) 5 %; HCT 32.5 % (34.0-46.0); HGB 10.9 gm/dL (11.4-16.0); Lymphocytes # (A) 1.8 k/uL (1.0-4.8); Lymphocytes % (A) 19 %; MCH 30.9 pg (25.0-35.0); MCHC 33.5 g/dL (31.0-37.0); MCV 92.5 fL (80.0-100.0); Mean Platelet Volume 7.2; Monocytes # (A) 0.5 k/uL (0-1.0); Monocytes % (A) 6 %; Neutrophils # (A) 6.5 k/uL (1.3-7.7); Neutrophils % (A) 69 %; Platelet Count 274 k/uL (150-450); RBC 3.52 m/uL (3.80-5.40); RDW 13.2 % (11.5-15.5); WBC 9.5 k/uL (3.8-10.6)
[2019-06-28] MEDS: ATENOLOL 25 MG TAB PO SCH ×2 (07:43→20:36)
[2019-06-28] MEDS: PANTOPRAZOLE 40 MG/10 ML VIAL IVP SCH ×2 (07:44→20:36)
[2019-06-28] MEDS: FUROSEMIDE 40 MG TAB PO SCH ×2 (07:44→20:36)
[2019-06-28] MEDS: POTASSIUM CHLORIDE ER 10 MEQ TAB.ER.PRT PO SCH (07:44)
[2019-06-28] MEDS: LEVOTHYROXINE 100 MCG TAB PO SCH (07:44)
[2019-06-28] MEDS ORDERED: Potassium Replacement Protocol 1 EACH MISC MISCELLANE PRN (09:45)
[2019-06-28] MEDS ORDERED: POTASSIUM CHLORIDE ER 20 MEQ TAB.ER PO SCH (10:30)
--- NOTE | 2019-06-28 13:59 | P.PN ---
Subjective Progress Note Date: 06/28/19 CHIEF COMPLAINT: Epigastric abdominal pain HISTORY OF PRESENT ILLNESS: The patient is a 64-year-old female who reports loose dark stools. She has tolerated full liquid diet. She reports improvement of her epigastric abdominal pain. ROS: No reports of nausea and vomiting. No fevers or chills. No new chest pain. No productive sputum PHYSICAL EXAM: VITAL SIGNS: Reviewed CONSTITUTIONAL: Well developed and in no acute distress. EYES: Conjuctivae without sclera icterus. Extraocular movements grossly intact. HEAD, EARS, NOSE, THROAT: Moist buccal mucosa. Head is atraumatic, normocephalic. Hears conversational speech. No nasal drainage. NECK: Supple. No thyroidomegaly. RESPIRATORY: Non-labored respirations and equal bilateral excursions. CARDIOVASCULAR: Palpable 2+ radial pulses. Regular rate. Regular rhythm. ABDOMEN: Soft. No peritonitis. Tenderness along the epigastrium. MUSCULOSKELETAL: No gross deformity of the lower extremities noted. No clubbing. No cyanosis. SKIN: Good skin turgor. Well perfused. NEUROLOGIC: Cranial nerves I through XII grossly intact. No focal or la teralizing signs. PSYCH: Appropriate affect. Alert and oriented to person, place and time. CLINCAL LABS: White blood cell count down from 14,000 to 9,500 STUDIES: CT of the abdomen pelvis independently reviewed without free air or colitis. RADIOLOGY: Report reviewed with finding of inflammation of the stomach. ASSESSMENT: 1. Epigastric abdominal pain 2. Abnormal computed tomography scan with inflammation of the stomach 3. Upper GI bleed PLAN: 1. Upper endoscopy for upper GI bleed. 2. Continue full liquid diet 3. Proton pump inhibitor for upper GI bleed. Objective - Vital Signs Vital signs: Vital Signs Temp 97.7 F 06/28/19 11:15 Pulse 64 06/28/19 11:15 Resp 18 06/28/19 11:15 BP 100/56 06/28/19 11:15 Pulse Ox 99 06/28/19 11:15 Intake & Output 06/27/19 06/28/19 06/28/19 18:59 06:59 18:59 Intake Total 620 800 Balance 620 800 Intake: IV 800 Piperacillin-Tazobactam 3 200 .375 gm In Sodium Chloride 0.9% 100 ml @ 25 mls/hr IVPB Q8H [facility] Rx#: [id number] Sodium Chloride 0.9% 1, 600 000 ml @ 75 mls/hr IV . [id number] [facility] Rx#:[id number] Intake, IV Titration 620 Amount Sodium Chloride 0.9% 1, 570 000 ml @ 75 mls/hr IV . [id number] [facility] Rx#:[id number] cefTRIAXone 1 gm In 50 Sodium Chloride 0.9% 50 ml @ 100 mls/hr IVPB Q24HR [facility] Rx#:[id number] Other: Voiding Method Toilet # Voids 2 - Labs CBC & Chem 7: 06/28/19 06:38 06/28/19 06:38 Labs: Abnormal Lab Results - Last 24 Hours (Table) 06/28/19 06/28/19 Range/Units 06:38 06:38 RBC 3.52 L (3.80-5.40) m/uL Hgb 10.9 L (11.4-16.0) gm/dL Hct 32.5 L (34.0-46.0) % Total Protein 5.5 L (6.3-8.2) g/dL Albumin 3.0 L (3.5-5.0) g/dL Microbiology - Last 24 Hours (Table) 06/26/19 16:15 Urine Culture - Preliminary Urine,Voided Gram Neg Bacilli 06/27/19 15:00 Stool Culture - Preliminary Stool 06/26/19 18:50 Blood Culture - Preliminary Blood No Growth after 24 hours Assessment and Plan (1) Epigastric abdominal pain Current Visit: Yes Status: Acute Code(s): R10.13 - EPIGASTRIC PAIN SNOMED Code(s): 66309569 (2) Gastritis Current Visit: Yes Status: Acute Code(s): K29.70 - GASTRITIS, UNSPECIFIED, WITHOUT BLEEDING SNOMED Code(s): 2713441 (3) Diarrhea Current Visit: Yes Status: Acute Code(s): R19.7 - DIARRHEA, UNSPECIFIED SNOMED Code(s): 37697411
[2019-06-28] MEDS: SODIUM CHLORIDE 0.9% 1,000 ML IV SCH ×2 (17:34→20:42)
--- NOTE | 2019-06-28 17:54 | PN ---
PROGRESS NOTE DATE OF SERVICE: 06/28/2019. REASON FOR FOLLOWUP: Abdominal pain, question pancreatitis with elevated white count. INTERVAL HISTORY: The patient is currently afebrile. The patient did have slight abdominal discomfort after eating her soup. Some nausea but no vomiting. Still complaining of diarrhea, though. No chest pain. No shortness of breath or cough. PHYSICAL EXAMINATION: Blood pressure is 100/56, pulse of 54, temperature of 97.7, she is 99% on room air. General description is an elderly female, lying in bed in no distress. Respiratory system: Unlabored breathing, clear to auscultation anteriorly. Heart S1, S2. Regular rate and rhythm. ABDOMEN: Soft, minimal tenderness. No guarding or rigidity. Extremities: No edema of the feet. LAB: Stool for C diff came back negative. Hemoglobin 10.8, white count 9.5 with a BUN of 9, creatinine 1.02. Stool for C difficile negative. Stool cultures pending. Blood cultures so far negative. DIAGNOSTIC IMPRESSION AND PLAN: Patient admitted to the hospital with abdominal pain, with concern for pancreatitis. The patient currently covered with [employer], to continue while monitoring clinical course closely. Continue supportive care. MMODL / IJN: [id number] /
[2019-06-28] MEDS: HYDROmorphone 0.5 MG/0.5 ML SYRINGE IVP PRN (20:37)
[2019-06-28] MEDS: ZOLPIDEM 10 MG TAB PO PRN (22:51)
--- NOTE | 2019-06-29 00:15 | PN ---
PROGRESS NOTE SUBJECTIVE: Followup hypokalemia, sepsis, acute abdominal pain. The patient continues with potassium replacement and duodenal ulcer. Patient will possibly get IV Protonix will be continued and patient will continue with IV Protonix and scheduled for an EGD next week. Duodenal ulcer may be ruled out or in depending on this. Continue with IV antibiotics for UTI. Follow up in next 24 to 48 hours. MMODL / IJN: [id number] /
[2019-06-29] MEDS: PIPERACILLIN-TAZOBACTAM 3.375 GM in SODIUM CHLORIDE 0.9% 100 ML IVPB SCH ×3 (04:38→19:43)
[2019-06-29] MEDS: POTASSIUM CHLORIDE ER 10 MEQ TAB.ER.PRT PO SCH (07:37)
[2019-06-29] MEDS: FUROSEMIDE 40 MG TAB PO SCH ×2 (07:37→15:57)
[2019-06-29] MEDS: PANTOPRAZOLE 40 MG/10 ML VIAL IVP SCH ×2 (07:37→20:28)
[2019-06-29] MEDS: LEVOTHYROXINE 100 MCG TAB PO SCH (07:37)
[2019-06-29] MEDS: ATENOLOL 25 MG TAB PO SCH ×2 (07:38→20:28)
[2019-06-29] MEDS: HYDROmorphone 0.5 MG/0.5 ML SYRINGE IVP PRN ×2 (10:01→22:03)
--- NOTE | 2019-06-29 11:48 | P.PN ---
Subjective Progress Note Date: 06/29/19 CHIEF COMPLAINT: Epigastric abdominal pain HISTORY OF PRESENT ILLNESS: The patient is a 64-year-old female who reports loose dark stools. No bowel movements recorded today. She reports mild epigastric crampy pain after her full liquid diet breakfast. ROS: No fevers or chills. No new chest pain. No productive sputum. No shortness of breath. PHYSICAL EXAM: VITAL SIGNS: Reviewed CONSTITUTIONAL: Well developed and in no acute distress. EYES: Conjuctivae without sclera icterus. Extraocular movements grossly intact. HEAD, EARS, NOSE, THROAT: Moist buccal mucosa. Head is atraumatic, normocephal ic. Hears conversational speech. No nasal drainage. NECK: Supple. No thyroidomegaly. RESPIRATORY: Non-labored respirations and equal bilateral excursions. CARDIOVASCULAR: Palpable 2+ radial pulses. Regular rate. Regular rhythm. ABDOMEN: Soft. No peritonitis. Mild epigastric abdominal pain. MUSCULOSKELETAL: No gross deformity of the lower extremities noted. No clubbing. No cyanosis. SKIN: Good skin turgor. Well perfused. NEUROLOGIC: Cranial nerves I through XII grossly intact. No focal or lateralizing signs. PSYCH: Appropriate affect. Alert and oriented to person, place and time. CLINCAL LABS: White blood cell count normal. Hgb stable. MICROBIOLOGY: UTI culture positive ASSESSMENT: 1. Epigastric abdominal pain 2. Abnormal computed tomography scan with inflammation of the stomach 3. Lower urinary tract infection, Klebsiella p. PLAN: 1. NPO after midnight 2. Recommend EGD for tomorrow. 3. Antibiotics for UTI with sensitivities, resistant to Ampicillin noted Objective - Vital Signs Vital signs: Vital Signs Temp 98.4 F 06/29/19 04:48 Pulse 60 06/29/19 04:48 Resp 16 06/29/19 04:48 BP 97/63 06/29/19 04:48 Pulse Ox 96 06/29/19 04:48 Intake & Output 06/28/19 06/29/19 06/29/19 18:59 06:59 18:59 Intake Total 690 Balance 690 Intake: IV 100 Piperacillin-Tazobactam 3 100 .375 gm In Sodium Chloride 0.9% 100 ml @ 25 mls/hr IVPB Q8H [facility] Rx#: [id number] Oral 590 Other: Voiding Method Toilet # Voids 2 3 - Labs CBC & Chem 7: 06/28/19 06:38 06/28/19 06:38 Labs: Microbiology - Last 24 Hours (Table) 06/26/19 16:15 Urine Culture - Final Urine,Voided Klebsiella pneumoniae 06/26/19 18:50 Blood Culture - Preliminary Blood No Growth after 48 hours Assessment and Plan (1) Epigastric abdominal pain Current Visit: Yes Status: Acute Code(s): R10.13 - EPIGASTRIC PAIN SNOMED Code(s): 90763174 (2) Gastritis Current Visit: Yes Status: Acute Code(s): K29.70 - GASTRITIS, UNSPECIFIED, WITHOUT BLEEDING SNOMED Code(s): 4648195 (3) Diarrhea Current Visit: Yes Status: Acute Code(s): R19.7 - DIARRHEA, UNSPECIFIED SNOMED Code(s): 79832722
[2019-06-29] MEDS: SODIUM CHLORIDE 0.9% 1,000 ML IV SCH (19:44)
--- NOTE | 2019-06-29 20:35 | PN ---
PROGRESS NOTE DATE OF SERVICE: 06/29/2019. REASON FOR FOLLOWUP: Leukocytosis, abdominal pain, possible pancreatitis and UTI. INTERVAL HISTORY: The patient is currently afebrile. Patient has been complaining of pain in abdominal area, especially after she eats. The patient diarrhea has slowed down. No chest pain, shortness of breath. No cough. PHYSICAL EXAMINATION: Blood pressure 103/59 with a pulse of 52, temperature 97.6. She is 97% on room air. General description is an elderly female, lying in bed in no distress. Respiratory system: Unlabored breathing. Clear to auscultation anteriorly. Heart S1, S2. Regular rate and rhythm. Abdomen soft, mildly tender in the epigastric area. No guarding or rigidity. LABS: Hemoglobin is 10.8, white count 9.5. BUN of 9, creatinine 1.02. Stool for C difficile is negative. Stool culture currently pending. Urine showing Klebsiella pneumoniae. DIAGNOSTIC IMPRESSION AND PLAN: Patient admitted to the hospital with abdominal pain mostly in the epigastric area in this patient CT suspicious for pancreatitis. Amylase and Lipase were normal. The patient is scheduled for an EGD tomorrow. Repeat amylase and lipase levels in the morning. White count responded to Zosyn that will be continued while monitoring clinical course closely. Continue supportive care. MMODL / IJN: [id number] /
[2019-06-29] MEDS: ZOLPIDEM 10 MG TAB PO PRN (22:03)
--- NOTE | 2019-06-29 23:20 | PN ---
PROGRESS NOTE SUBJECTIVE: White female admitted with abdominal pain. She still has a lot of epigastric abdominal pain. EGD is scheduled for in the morning. CT scan shows probable duodenal ulcer. White count is improving on empiric antibiotics for UTI. Most of her pain is in the abdominal area, epigastric area. Remains on IV Protonix 40 b.i.d. Cardiovascular S1, S2. Lungs are clear. GI is increased bowel sounds. ASSESSMENT: Acute abdominal pain and possible duodenal ulcer due to abnormal CAT scan. IV Protonix 40 q.12 await EGD in the morning. Supplement with Ensure for dizziness as she has been dizzy due to lack of food. MMODL / IJN: [id number] /
[2019-06-30] MEDS: PIPERACILLIN-TAZOBACTAM 3.375 GM in SODIUM CHLORIDE 0.9% 100 ML IVPB SCH ×2 (03:48→12:36)
[2019-06-30] MEDS: LEVOTHYROXINE 100 MCG TAB PO SCH ×2 (04:00→08:15)
[2019-06-30 08:01] LABS: Amylase <30 U/L (30-110)
[2019-06-30] MEDS: ATENOLOL 25 MG TAB PO SCH ×2 (08:10→20:13)
[2019-06-30] MEDS: PANTOPRAZOLE 40 MG/10 ML VIAL IVP SCH ×2 (08:10→20:13)
[2019-06-30] MEDS: HYDROmorphone 0.5 MG/0.5 ML SYRINGE IVP PRN (09:44)
[2019-06-30 10:30] VITALS: BMI 37.0
[2019-06-30] MEDS ORDERED: LIDOCAINE 1% INJ 10MG/ML (20 ML MDV) ONE (11:53)
[2019-06-30] MEDS ORDERED: PROPOFOL 10 MG/ML 20 ML VIAL IV ONE (11:53)
[2019-06-30] MEDS ORDERED: IV FLUID CONTINUATION 1,000 ML IV ONE (11:54)
--- NOTE | 2019-06-30 12:07 | P.OP ---
Date of Procedure: 06/30/19 Preoperative Diagnosis: Gastritis Postoperative Diagnosis: Mild antral gastritis Procedure(s) Performed: EGD Anesthesia: MAC Surgeon: Jair Loredo Pathology: other (Antrum) Condition: stable Disposition: PACU Description of Procedure: The patient's placed on the endoscopy table in the lateral position. She received IV sedation. The gastroscope oropharynx passed in the esophagus into the stomach. Scope was placed through the pylorus. The first and second portion duodenum appeared normal. Scope was then brought back the antrum and this appeared mildly inflamed. A biopsies performed. The scope was then retroflexed and the remainder stomach appeared normal. There is no significant hiatal hernia. GE junction was at 40 cm the distal esophagus appeared normal. The proximal esophagus appeared normal. Scope withdrawn from the patient.
--- NOTE | 2019-06-30 13:47 | P.PN ---
Subjective Progress Note Date: 06/30/19 This is a 64-year-old female admitted with epigastric abdominal pain and multiple other medical issues. CT reported possible duodenal ulcer with perforation, Evaluated by surgery,scheduled for EGD this morning. Maintained on Zosyn for acute UTI with Klebsiella pneumoniae. Denies chest pain, palpitations or shortness of breath. Afebrile, normal WBC. Tested negative for C. difficile colitis. Plan cultures negative at 72 hours, preliminary stool culture pending Objective - Vital Signs Vital signs: Vital Signs Temp 97.8 F 06/30/19 05:00 Pulse 62 06/30/19 05:00 Resp 16 06/30/19 05:00 BP 93/58 06/30/19 05:00 Pulse Ox 97 06/30/19 05:00 Intake & Output 06/29/19 06/30/19 06/30/19 18:59 06:59 18:59 Intake Total 400 2720 Balance 400 2720 Weight 104 kg 104 kg Intake: IV 400 Piperacillin-Tazobactam 3 100 .375 gm In Sodium Chloride 0.9% 100 ml @ 25 mls/hr IVPB Q8H TRE Rx#: [id number] Sodium Chloride 0.9% 1, 300 000 ml @ 75 mls/hr IV . [id number] TER Rx#:[id number] Oral 2720 Other: Voiding Method Toilet # Voids 2 - Exam PHYSICAL EXAM: VITAL SIGNS: As above GENERAL: Sitting up in bed, no acute distress HEENT: Conjunctivae normal. eyes normal. ] Judah NECK: No JVD. No thyroid enlargement. No LNs CARDIOVASCULAR: S1, S2 regular.. No murmur RESPIRATION: Breath sounds diminished in the bases. No rhonchi or crackles. No bronchial breathing. ABDOMEN: Soft, nontender . No guarding. no masses palpable. No ascites, No hepatosplenomegaly.hyperactive Bowel sounds heard. LEGS: No edema. no swelling PSYCHIATRY: Alert and oriented X3, mood and affect normal. NERVOUS SYSTEM: Cranial N 2-12 grossly normal. Moves all 4 limbs. Diffuse weakness No focal deficits. Strength and sensation grossly intact.. Skin: no lesions, no rash Microbiology 06/26/19 18:50 Blood Blood Culture - Preliminary No Growth after 72 hours 06/27/19 15:00 Stool Stool Culture - Preliminary 06/26/19 16:15 Urine,Voided Urine Culture - Final Klebsiella pneumoniae - Labs CBC & Chem 7: 06/28/19 06:38 06/28/19 06:38 Labs: Abnormal Lab Results - Last 24 Hours (Table) 06/30/19 Range/Units 06:52 Amylase <30 L (30-110) U/L Microbiology - Last 24 Hours (Table) 06/26/19 18:50 Blood Culture - Preliminary Blood No Growth after 72 hours 06/27/19 15:00 Stool Culture - Preliminary Stool Assessment and Plan Assessment: -Epigastric abdominal pain, possibly duodenal ulcer per CT, in a patient with chronic NSAIDs use- Mobic -Abnormal computed tomography scan reporting inflammation, possible duodenal ulcer with perforation, EGD pending -Diverticulosis, no emesis of acute diverticulitis -Acute UTI with Klebsiella pneumoniae -Sepsis ruled out. Plan: Continue current medication regime ,monitoring and symptomatic treatment. Maintain IV antibiotics. Nothing by mouth, EGD pending. Follow closely with surgery. Ensure supplements between meals, to resume after endoscopy, pending surgery clearance. The impression and plan of care has been dictated as directed. : I performed a history and examination of this patient, discussed the same with the dictator. I agree with the dictator's note ,documented as a scribe. Any additional findings or plans will be noted.
--- NOTE | 2019-06-30 15:53 | NM ---
EXAMINATION TYPE: NM hepatobiliary w CCK DATE OF EXAM: 06/30/2019 COMPARISON: CT 06/26/2019 HISTORY: Abdominal pain TECHNIQUE: After the intravenous administration of 4.44 mCi Tc 99m Mebrofenin hepatobiliary scintigra phy is performed. Immediate images post injection. FINDINGS: There is satisfactory initial accumulation of tracer by the liver. The gallbladder is visualized wit hin 10 minutes. The small bowel activity is noted within 16 minutes. At one hour CCK was administer ed, patient was injected with 2.1 mcg of Kinevac, and gallbladder ejection fraction is calculated at 66 %, in the normal range. Therefore there is no scintigraphic evidence of cystic or common bile chong t obstruction to suggest acute cholecystitis or gallbladder dyskinesia. IMPRESSION: Exam is within normal limits.
[2019-06-30] MEDS: FUROSEMIDE 40 MG TAB PO SCH ×2 (16:22)
[2019-06-30] MEDS: POTASSIUM CHLORIDE ER 10 MEQ TAB.ER.PRT PO SCH (16:22)
[2019-06-30] MEDS: SODIUM CHLORIDE 0.9% 1,000 ML IV SCH ×2 (17:23→22:51)
[2019-06-30] MEDS: metroNIDAZOLE 500 MG TAB PO SCH ×2 (17:27→22:49)
--- NOTE | 2019-06-30 17:27 | PN ---
PROGRESS NOTE DATE OF SERVICE: 06/30/2019 REASON FOR FOLLOWUP: Abdominal pain and leukocytosis with concern for pancreatitis. INTERVAL HISTORY: The patient is currently afebrile. The patient is status post EGD, and apparently she was noted to have mild antral gastritis. The patient continues to complain of abdominal discomfort and nausea. A HIDA scan has been ordered. The patient is still complaining of some diarrhea. No chest pain, shortness of breath or cough, though. PHYSICAL EXAMINATION: Blood pressure 110/60 with a pulse of 67, temperature 98. She is 97% on room air. General description is an elderly female lying in bed in no distress. RESPIRATORY SYSTEM: Unlabored breathing. Clear to auscultation anteriorly. HEART: S1, S2. Regular rate and rhythm. ABDOMEN: Soft. No tenderness. EXTREMITIES: No edema of the feet. LABS: Amylase and lipase have been normal. Stool for C difficile has been negative. DIAGNOSTIC IMPRESSION AND PLAN: Patient with leukocytosis which is likely multifactorial in this patient who predominant symptom has been abdominal pain with concern for pancreatitis initially, though amylase and lipase have been negative. Plan at this time is to switch her antibiotic therapy to oral Cipro and Flagyl in view of the persistent diarrhea with Zosyn and monitor clinical course closely. Continue supportive care. MMODL / IJN: [id number] /
[2019-06-30] MEDS: CIPROFLOXACIN HCL 500 MG TAB PO SCH (20:13)
[2019-06-30 20:56] VITALS: RESP 18
[2019-06-30] MEDS: ZOLPIDEM 10 MG TAB PO PRN (22:49)
[2019-07-01] MEDS: LEVOTHYROXINE 100 MCG TAB PO SCH (05:47)
[2019-07-01] MEDS: HYDROmorphone 0.5 MG/0.5 ML SYRINGE IVP PRN (06:29)
[2019-07-01] MEDS: POTASSIUM CHLORIDE ER 10 MEQ TAB.ER.PRT PO SCH (07:40)
[2019-07-01] MEDS: CIPROFLOXACIN HCL 500 MG TAB PO SCH (07:41)
[2019-07-01] MEDS: FUROSEMIDE 40 MG TAB PO SCH (07:41)
[2019-07-01] MEDS: ATENOLOL 25 MG TAB PO SCH (07:41)
[2019-07-01] MEDS: metroNIDAZOLE 500 MG TAB PO SCH (07:41)
[2019-07-01] MEDS: PANTOPRAZOLE 40 MG/10 ML VIAL IVP SCH (07:41)
[2019-07-01 12:08] LABS: Basophils # (A) 0.1 k/uL (0-0.2); Basophils % (A) 1 %; Eosinophils # (A) 0.3 k/uL (0-0.7); Eosinophils % (A) 4 %; HCT 36.5 % (34.0-46.0); Lymphocytes # (A) 1.9 k/uL (1.0-4.8); Lymphocytes % (A) 27 %; MCH 30.6 pg (25.0-35.0); MCHC 32.8 g/dL (31.0-37.0); MCV 93.2 fL (80.0-100.0); Mean Platelet Volume 6.3; Monocytes # (A) 0.4 k/uL (0-1.0); Monocytes % (A) 6 %; Neutrophils # (A) 4.3 k/uL (1.3-7.7); Neutrophils % (A) 61 %; Platelet Count 353 k/uL (150-450); RBC 3.91 m/uL (3.80-5.40); RDW 12.5 % (11.5-15.5)
[2019-07-01 12:32] VITALS: BP 111/70; PULSE 62; TEMP 97.5
[2019-07-01] MEDS: SODIUM CHLORIDE 0.9% 1,000 ML IV SCH (13:43)
--- NOTE | 2019-07-01 15:21 | P.DS ---
Providers Date of admission: 06/27/19 08:05 Expected date of discharge: 07/01/19 Attending physician: Myron Downs Consults: 06/26/19 12:28 Consult Physician Routine Consulting Provider: Jair Loredo Consult Reason/Comments: abdominal pain Do you want consulting provider notified?: Yes Placement Type Exists?: Yes 06/26/19 16:20 Consult Physician Urgent Consulting Provider: Princess Tran Consult Reason/Comments: sepsis Do you want consulting provider notified?: Yes Primary care physician: [facility] Hospital Course: Final diagnoses -Epigastric abdominal pain, Abnormal computed tomography scan reporting inflammation/ fat stranding of the inferior pancreatic head, changed compared to prior exam, lipase within normal limits.possible duodenal ulcer with perforat ion.Status post EGD reporting mild antral gastritis, biopsies obtained. -Diverticulosis, no emesis of acute diverticulitis -Acute UTI with Klebsiella pneumoniae -Sepsis ruled out. Hospital course:This is a 64-year-old female admitted with epigastric abdominal pain and multiple other medical issues. CT reported possible duodenal ulcer with perforation, Evaluated by surgery,scheduled for EGD this morning. Maintained on Zosyn for acute UTI with Klebsiella pneumoniae. Denies chest pain, palpitations or shortness of breath. Afebrile, normal WBC. Tested negative for C. difficile colitis. Plan cultures negative at 72 hours, preliminary stool culture pending Stool cultures negative. Status post EGD reportedly mild antral gastritis, biopsies obtained. Tolerated procedure well. Antibiotics further adjusted by infectious disease yesterday to Cipro and Flagyl. Diarrhea nearly subsided, one episode earlier this morning. Abdominal pain improved .Significant clinical improvement. Cleared by all consults for discharge. Patient is being discharged home in a stable condition with guarded prognosis. - Exam PHYSICAL EXAM: GENERAL: Alert and oriented 3, no acute distress CARDIOVASCULAR: S1, S2 regular.. No murmur RESPIRATION: Breath sounds diminished in the bases. No rhonchi or crackles. No bronchial breathing. ABDOMEN: Soft, nontender . No guarding. no masses palpable. positive Bowel sounds heard. NERVOUS SYSTEM: No focal deficits. The impression and plan of care has been dictated as directed. : I performed a history and examination of this patient, discussed the same with the dictator. I agree with the dictator's note ,documented as a scribe. Any additional findings or plans will be noted. Time Taken: 35 min. Patient Condition at Discharge: Stable Plan - Discharge Summary Discharge Rx Participant: No New Discharge Prescriptions: New Ciprofloxacin HCl [Cipro] 500 mg PO BID #20 tab metroNIDAZOLE [Flagyl] 500 mg PO TID #30 tab Pantoprazole Sodium [Protonix] 40 mg PO BID #60 tablet.dr Mckeon Cholecalciferol [Vitamin D3 (25 Mcg = 1000 Iu)] 1,000 unit PO DAILY Ascorbic Acid [Vitamin C] 500 mg PO DAILY Zolpidem [Ambien] 5 mg PO HS PRN PRN Reason: Insomnia Potassium Chloride ER [K-Dur 10] 20 meq PO DAILY Meloxicam [Mobic] 15 mg PO DAILY Levothyroxine Sodium [Synthroid] 100 mcg PO DAILY Atenolol [Tenormin] 25 mg PO BID Garlic 1 tab PO DAILY Furosemide [Lasix] 40 mg PO BID Discontinued Omeprazole 20 mg PO DAILY Discharge Medication List Ascorbic Acid [Vitamin C] 500 mg PO DAILY 03/13/19 [History] Atenolol [Tenormin] 25 mg PO BID 03/13/19 [History] Cholecalciferol [Vitamin D3 (25 Mcg = 1000 Iu)] 1,000 unit PO DAILY 03/13/19 [History] Garlic 1 tab PO DAILY 03/13/19 [History] Levothyroxine Sodium [Synthroid] 100 mcg PO DAILY 03/13/19 [History] Meloxicam [Mobic] 15 mg PO DAILY 03/13/19 [History] Potassium Chloride ER [K-Dur 10] 20 meq PO DAILY 03/13/19 [History] Zolpidem [Ambien] 5 mg PO HS PRN 03/13/19 [History] Furosemide [Lasix] 40 mg PO BID 06/26/19 [History] Ciprofloxacin HCl [Cipro] 500 mg PO BID #20 tab 07/01/19 [Rx] Pantoprazole Sodium [Protonix] 40 mg PO BID #60 tablet. 07/01/19 [Rx] metroNIDAZOLE [Flagyl] 500 mg PO TID #30 tab 07/01/19 [Rx] Follow up Appointment(s)/Referral(s): Myron Downs MD [Primary Care Provider] - 07/10/19 10:15 am Jair Loredo MD [STAFF PHYSICIAN] - 07/08/19 2:20 pm Ambulatory/Diagnostic Orders: Complete Blood Count w/diff [LAB.AMB] Time Frame: 3 Days, Location: None Selected Patient Instructions/Handouts: Ciprofloxacin (By mouth), Metronidazole (By mouth), Pantoprazole (By mouth), Gastritis (DC), Urinary Tract Infection in Women (DC), Acute Diarrhea (GEN)
--- NOTE | 2019-07-01 15:56 | PN ---
PROGRESS NOTE DATE OF SERVICE: 07/01/2019 REASON FOR FOLLOWUP: Leukocytosis, UTI and possible abdominal source. INTERVAL HISTORY: The patient is currently afebrile. The patient has been breathing comfortably. Still complaining of nausea and abdominal discomfort after she eats, but no vomiting. Diarrhea has slightly slowed down. PHYSICAL EXAMINATION: Blood pressure is 111/70 with a pulse of 62, temperature 97.5. She is 96% on room air. General description is an elderly female up in the bed in no distress. RESPIRATORY SYSTEM: Unlabored breathing. Clear to auscultation anteriorly. HEART: S1, S2. Regular rate and rhythm. ABDOMEN: Soft. No tenderness. LABS: Hemoglobin is 12 with a white count of 7.0. BUN of 9, creatinine 1.02. Cultures have been negative. Urine is positive for klebsiella. DIAGNOSTIC IMPRESSION AND PLAN: Patient admitted to hospital with abdominal pain and vomiting with initial concern for pancreatitis on the basis of CT. Blood work showed amylase and lipase were normal. Blood culture negative. Urine with Klebsiella. Patient will be given a short course of oral Cipro and Flagyl with close outpatient followup. Plan of care discussed in detail with the nurse practitioner for the admitting team. MMODL / IJN: [id number] /
== END 2019-07-01 15:15 | disposition home or self-care (01) | DRG 392 ==
LOC: 3NMEDONC 12:11 → OBSVTOIN 06-27 08:05
PROVIDERS: ADMIT Family Medicine; ATTEND Family Medicine
PROC: 0DB78ZX Excision of Stomach, Pylorus, Via Natural or Artificial Opening Endoscopic, Diagnostic (ICD-10-PCS; principal; 2019-06-30 11:25)
DX: K29.70 Gastritis, unspecified, without bleeding (principal); N39.0 Urinary tract infection, site not specified; K21.9 Gastro-esophageal reflux disease without esophagitis; J45.909 Unspecified asthma, uncomplicated; I10 Essential (primary) hypertension; E87.6 Hypokalemia; E03.9 Hypothyroidism, unspecified; K57.90 Diverticulosis of intestine, part unspecified, without perforation or abscess without bleeding; B96.1 Klebsiella pneumoniae [K. pneumoniae] as the cause of diseases classified elsewhere; Z79.1 Long term (current) use of non-steroidal anti-inflammatories (NSAID); Z79.890 Hormone replacement therapy; Z79.899 Other long term (current) drug therapy; Z82.49 Family history of ischemic heart disease and other diseases of the circulatory system; Z82.62 Family history of osteoporosis; Z90.710 Acquired absence of both cervix and uterus; E66.9 Obesity, unspecified; Z68.37 Body mass index [BMI] 37.0-37.9, adult; M15.9 Polyosteoarthritis, unspecified; M54.5 Low back pain; G89.29 Other chronic pain; Z86.010 Personal history of colon polyps; G47.00 Insomnia, unspecified; R19.7 Diarrhea, unspecified; F32.9 Major depressive disorder, single episode, unspecified
CPT/HCPCS: 43239; 74019; 74177; 78227; 80053; 81001; 82150; 83690; 84132; 85025; 87040; 87045; 87046; 87077; 87086; 87186; 87324; 88305

== ENCOUNTER → 2019-07-04 | Outpatient (CLI) | payer MEDICARE ==
[2019-07-04 09:44] LABS: Basophils # (A) 0.1 k/uL (0-0.2); Basophils % (A) 1 %; Eosinophils # (A) 0.2 k/uL (0-0.7); Eosinophils % (A) 3 %; Lymphocytes # (A) 2.2 k/uL (1.0-4.8); Lymphocytes % (A) 27 %; MCH 30.9 pg (25.0-35.0); MCHC 33.3 g/dL (31.0-37.0); MCV 92.7 fL (80.0-100.0); Mean Platelet Volume 6.6; Monocytes # (A) 0.5 k/uL (0-1.0); Monocytes % (A) 6 %; Neutrophils # (A) 5.1 k/uL (1.3-7.7); Neutrophils % (A) 62 %; Platelet Count 430 k/uL (150-450); RBC 4.21 m/uL (3.80-5.40); RDW 13.6 % (11.5-15.5); WBC 8.2 k/uL (3.8-10.6)
[2019-07-04 17:10] LABS: African American GFR (CKD) 54.9 (60.0-200.0); Anion Gap 10.5 mmol/L (4.00-12.00); BUN/Creat Ratio 15.83 Ratio (12.00-20.00); Calcium 9.2 mg/dL (8.7-10.3); Carbon Dioxide 26.5 mmol/L (21.6-31.8); Non-African American GFR(CKD) 47.4 (60.0-200.0); Potassium 3.9 mmol/L (3.5-5.5)
== END | disposition home or self-care (01) ==
LOC: LABWHC1 08:45
PROVIDERS: ATTEND Nurse Practitioner
DX: K29.70 Gastritis, unspecified, without bleeding (principal)
CPT/HCPCS: 36415; 80048; 85025

== ENCOUNTER 2019-07-16 11:13 | Day surgery (SDC) | payer MEDICARE ==
[2019-07-10 15:36] VITALS: BMI 38.7
[~2019-07-16 11:13] MED LIST: LACTATED RINGERS 1,000 ML IV SCH
[2019-07-16] MEDS ORDERED: LIDOCAINE 1% 20 ML VIAL (10MG/ML) FOR IV START INTRADERMA ONE (12:50)
[2019-07-16 13:04] VITALS: TEMP 98.3
--- NOTE | 2019-07-16 13:09 | P.GSHP ---
History of Present Illness H&P Date: 07/16/19 Chief Complaint: Diarrhea This is a 64-year-old female who secondary to diarrhea. Patient rents today for colonoscopy. Past Medical History Past Medical History: Asthma, Hypertension, Osteoarthritis (OA), Pneumonia, Thyroid Disorder Additional Past Medical History / Comment(s): Bronchitis, arthritis in multiple joints, chronic low back pain, constipation, occasional bilateral lower leg edema, hypothyroid, abdominal pain from belly button up to rib cage, recent admission for abd. pain, UTI History of Any Multi-Drug Resistant Organisms: None Reported Past Surgical History: Bladder Surgery, Hysterectomy, Tubal Ligation Additional Past Surgical History / Comment(s): Bladder suspension, rectocele, colonoscopy, recent EGD Past Anesthesia/Blood Transfusion Reactions: Motion Sickness Additional Past Anesthesia/Blood Transfusion Reaction / Comment(s): Pt has received blood in past without reaction. Pt states she did have motion sickness as a child. Smoking Status: Never smoker - Past Family History Father Family Medical History: Myocardial Infarction ([place]) Additional Family Medical History / Comment(s): Father had a [place] in his 80's. He lived to be 98yrs old. Mother Family Medical History: Hyperlipidemia, Hypertension Additional Family Medical History / Comment(s): Mother has osteoporosis. She is 93 yrs old. Medications and Allergies Home Medications Medication Instructions Recorded Confirmed Type Atenolol [Tenormin] 25 mg PO BID 03/13/19 07/10/19 History Levothyroxine Sodium [Synthroid] 100 mcg PO DAILY 03/13/19 07/10/19 History Meloxicam [Mobic] 15 mg PO DAILY 03/13/19 07/10/19 History Potassium Chloride ER [K-Dur 10] 20 meq PO DAILY 03/13/19 07/10/19 History Zolpidem [Ambien] 5 mg PO HS PRN 03/13/19 07/10/19 History Furosemide [Lasix] 80 mg PO BID 06/26/19 07/10/19 History Ciprofloxacin HCl [Cipro] 500 mg PO BID #20 tab 07/01/19 07/10/19 Rx Pantoprazole Sodium [Protonix] 40 mg PO BID #60 tablet. 07/01/19 07/10/19 Rx metroNIDAZOLE [Flagyl] 500 mg PO TID #30 tab 08/20/19 08/29/19 Rx Allergies Allergy/AdvReac Type Severity Reaction Status Date / Time No Known Allergies Allergy Verified 07/16/19 12:39 Surgical - Exam Vital Signs Temp Pulse Resp BP Pulse Ox 98.3 F 59 L 16 142/65 97 07/16/19 12:50 07/16/19 12:50 07/16/19 12:50 07/16/19 12:50 07/16/19 12:50 - General well developed, well nourished, no distress - Eyes PERRL - ENT normal pinna - Neck no masses - Respiratory normal expansion - Cardiovascular Rhythm: regular - Abdomen Abdomen: soft, non tender Assessment and Plan Assessment: Diarrhea. We'll perform colonoscopy.
[2019-07-16] MEDS ORDERED: PROPOFOL 10 MG/ML 20 ML VIAL IV ONE (13:10)
--- NOTE | 2019-07-16 13:26 | P.OP ---
Date of Procedure: 07/16/19 Preoperative Diagnosis: Diarrhea Postoperative Diagnosis: Diverticulosis Rectal polyp Procedure(s) Performed: Colonoscopy Anesthesia: MAC Surgeon: Jair Loredo Pathology: other (Rectal polyp) Condition: stable Disposition: PACU Description of Procedure: The patient's placed on the endoscopy table in the lateral position. She received IV sedation. Digital rectal exam was performed which revealed no abnormalities. The flexible colonoscope was then placed patient anus passed throughout the entire colon. The ileocecal valve sutures. The cecum, ascending and transverse colon appeared normal. In the descending and sigmoid colon there is diverticular changes seen. The scope was then brought back the rectum another polyp was seen. This was biopsied with a cold forcep and removed. There is no evidence of any inflammatory changes colon. The scope was withdrawn for patient.
[2019-07-16 14:04] VITALS: BP 136/73; PULSE 50; RESP 18
== END 2019-07-16 14:16 | disposition home or self-care (01) ==
LOC: ORWHC2ENDO 11:13
PROVIDERS: ATTEND Surgery
DX: K57.30 Diverticulosis of large intestine without perforation or abscess without bleeding (principal); K62.1 Rectal polyp; I10 Essential (primary) hypertension; E03.9 Hypothyroidism, unspecified; J45.909 Unspecified asthma, uncomplicated; M19.90 Unspecified osteoarthritis, unspecified site; G89.29 Other chronic pain; M54.5 Low back pain; Z90.710 Acquired absence of both cervix and uterus; Z98.51 Tubal ligation status; Z82.49 Family history of ischemic heart disease and other diseases of the circulatory system; Z79.1 Long term (current) use of non-steroidal anti-inflammatories (NSAID); Z79.890 Hormone replacement therapy; Z79.899 Other long term (current) drug therapy
CPT/HCPCS: 88305; 45380; J2704

== ENCOUNTER → 2019-08-19 | Outpatient (CLI) | payer MEDICARE | END | disposition home or self-care (01) | LOC: LABWHC1 13:48 | PROVIDERS: ATTEND Internal Medicine Endocrinology, Diabetes & Metabolism | DX: E03.8 Other specified hypothyroidism (principal) | CPT/HCPCS: 36415; 84443 ==

== ENCOUNTER → 2019-08-21 | Outpatient (CLI) | payer MEDICARE ==
--- NOTE | 2019-08-21 10:31 | CT ---
EXAMINATION TYPE: CT abdomen pelvis w con DATE OF EXAM: 08/21/2019 COMPARISON: 06/26/2019 HISTORY: 64-year-old female left upper quadrant mass, hernia TECHNIQUE: Contiguous axial scanning of the abdomen and pelvis following administration of 100 ml Iso mary 300 IV contrast. Delayed images through the kidneys and coronal/sagittal reconstructions perform ed. CT DLP: 1828.1 mGycm Automated exposure control for dose reduction was used. FINDINGS: Heart normal size without pericardial effusion. Lung bases clear without pleural effusion. Small hiatal hernia. Stable subcentimeter hypodensity mid liver, axial image 18 to small for accurate CT characterization. This was present back in 11/07/2016 as well suggesting a benign cyst. No other focal liver lesion or biliary ductal dilatation. Portal venous system is patent. Gallbladder, right adrenal gland, right kidney with extrarenal pelvis, left kidney, spleen, and pancr eas appear within normal limits. Minimal low density nodular thickening of the medial limb right adrenal gland at 8 mm is unchanged, p ossible tiny underlying adrenal adenoma. No dilated small bowel, free fluid, or free air. No mesenteric or retroperitoneal lymphadenopathy. Normal appendix. Oral contrast progressed to the rectum. Mild proximal sigmoid diverticulosis without pericolonic infl ammatory change. Bladder is urine distended. Small fat-containing indirect left inguinal hernia, axial image 83 and co dee dee image 43, fairly similar to 06/26/2019. Multiple pelvic phlebolith. Uterus surgically absent. Alex th ovaries are visualized. No abnormal fluid collection in the pelvis or pelvic lymphadenopathy. Bones: Mild degenerative changes at the hips. Moderate to advanced degenerative disc disease L4-L5 an d L5-S1. Facet arthropathy lower lumbar spine with grade 1 anterolisthesis at L4-L5. IMPRESSION: 1. SMALL HIATAL HERNIA. 2. SMALL FAT-CONTAINING LEFT-SIDED INDIRECT INGUINAL HERNIA. 3. 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 4. MILD PROXIMAL SIGMOID DIVERTICULOSIS.
== END | disposition home or self-care (01) ==
LOC: RADCTMAIN 07:05
PROVIDERS: ATTEND Surgery
DX: K44.9 Diaphragmatic hernia without obstruction or gangrene (principal); K40.90 Unilateral inguinal hernia, without obstruction or gangrene, not specified as recurrent; K57.30 Diverticulosis of large intestine without perforation or abscess without bleeding; K43.0 Incisional hernia with obstruction, without gangrene; R19.02 Left upper quadrant abdominal swelling, mass and lump
CPT/HCPCS: 82565; 84520; 74177; 36415; Q9967

== ENCOUNTER → 2020-05-19 | Outpatient (CLI) | payer MEDICARE | END | disposition home or self-care (01) | LOC: LABWHC1 13:12 | PROVIDERS: ATTEND Internal Medicine Endocrinology, Diabetes & Metabolism | DX: E03.8 Other specified hypothyroidism (principal) | CPT/HCPCS: 36415; 84443 ==

== ENCOUNTER → 2020-08-30 | Outpatient (CLI) | payer MEDICARE | END | disposition home or self-care (01) | LOC: LABWHC1 13:30 | PROVIDERS: ATTEND Internal Medicine Endocrinology, Diabetes & Metabolism | DX: E03.8 Other specified hypothyroidism (principal) | CPT/HCPCS: 36415; 84443 ==

== ENCOUNTER → 2020-12-16 | Outpatient (CLI) | payer MEDICARE ==
--- NOTE | 2020-12-16 12:16 | XR ---
Thoracic spine HISTORY: M 54.16, M 51.3 3 views of the thoracic spine There is multilevel thoracic spondylosis. Thoracic vertebral bodies show preserved height, alignment, and bone mineralization. There is loss of disc height at intervertebral levels of the mid to lower t horacic spine. No paraspinal mass. IMPRESSION: Degenerative disc disease.
--- NOTE | 2020-12-16 12:23 | XR ---
Lumbar spine HISTORY: M 54.16, M 51.3 3 views the lumbar spine Correlated prior exam 06/10/2018 Minimal anterolisthesis grade 1 L4-5, loss of disc height L4-5, L5-S1 greater than L3-4. Is multileve l spondylosis. Vacuum phenomenon present at L4-5 and L5-S1. Sclerosis present in the posterior elemen ts. Bone mineralization is decreased. Lumbar vertebral bodies show preserved height. Some sclerosis a gain noted along the sacroiliac joints as described in prior report. IMPRESSION: Degenerative disc disease, facet arthropathy, osteopenia. Additional findings above.
== END | disposition home or self-care (01) ==
LOC: RADXRMAIN 10:55
PROVIDERS: ATTEND Family Medicine
DX: M43.16 Spondylolisthesis, lumbar region (principal); M51.34 Other intervertebral disc degeneration, thoracic region; M51.16 Intervertebral disc disorders with radiculopathy, lumbar region; M47.26 Other spondylosis with radiculopathy, lumbar region; M85.88 Other specified disorders of bone density and structure, other site; G95.89 Other specified diseases of spinal cord
CPT/HCPCS: 72072; 72100

== ENCOUNTER → 2021-01-13 | Outpatient (CLI) | payer MEDICARE ==
--- NOTE | 2021-01-14 13:44 | MM ---
Reason for exam: clinical finding. Last mammogram was performed 2 years and 6 months ago. History: Patient is postmenopausal. Family history of breast cancer in 2 paternal aunts. Took estrogen for 5 years beginning at age 50. Took progesterone for 5 years beginning at age 50. Physical Findings: Nurse did not find any significant physical abnormalities on exam. MG 3D Diag Mammo W/Cad KELSI Bilateral CC and MLO view(s) were taken. Prior study comparison: July 04, 2018, bilateral MG 3d screening mammo w/cad. July 04, 2016, bilateral MG screening mammo w CAD. There are scattered fibroglandular densities. There are benign appearing round, regional calcifications bilaterally. There is no discrete abnormality. These results were verbally communicated with the patient and result sheet given to the patient on 01/13/21. ASSESSMENT: Benign, BI-RAD 2 RECOMMENDATION: Routine screening mammogram of both breasts in 1 year.
--- NOTE | 2021-01-14 13:45 | USB ---
Reason for exam: clinical finding. History: Patient is postmenopausal. Family history of breast cancer in 2 paternal aunts. Took estrogen for 5 years beginning at age 50. Took progesterone for 5 years beginning at age 50. US Breast Limited RT Right limited breast ultrasound including focal area of concern, retroareolar and axilla demonstrates no cystic or solid lesion seen. These results were verbally communicated with the patient and result sheet given to the patient on 01/13/21. ASSESSMENT: Negative, BI-RAD 1 RECOMMENDATION: Routine screening mammogram of both breasts in 1 year. Manage patient on a clinical basis.
== END ==
LOC: RADMAMWWP 14:16
PROVIDERS: ATTEND Family Medicine
DX: R92.1 Mammographic calcification found on diagnostic imaging of breast (principal); N64.89 Other specified disorders of breast; Z78.0 Asymptomatic menopausal state; Z80.3 Family history of malignant neoplasm of breast
CPT/HCPCS: 77066; 76642; G0279; 77062

== ENCOUNTER → 2021-01-17 | Outpatient (CLI) | payer MEDICARE | END | disposition home or self-care (01) | LOC: LABWHC1 15:32 | PROVIDERS: ATTEND Internal Medicine Endocrinology, Diabetes & Metabolism | DX: E03.8 Other specified hypothyroidism (principal) | CPT/HCPCS: 36415; 84443 ==

== ENCOUNTER → 2021-07-15 | Outpatient (CLI) | payer MEDICARE | END | disposition home or self-care (01) | LOC: LABWHC1 07:43 | PROVIDERS: ATTEND Internal Medicine Endocrinology, Diabetes & Metabolism | DX: E03.8 Other specified hypothyroidism (principal) | CPT/HCPCS: 36415; 84443 ==

== ENCOUNTER → 2022-02-07 | Outpatient (CLI) | payer MEDICARE ==
--- NOTE | 2022-02-08 10:12 | MM ---
Reason for exam: screening (asymptomatic). Last mammogram was performed 1 year and 1 month ago. History: Patient is postmenopausal. Family history of breast cancer in 2 paternal aunts at age 70. Took estrogen for 5 years beginning at age 50. Took progesterone for 5 years beginning at age 50. Physical Findings: A clinical breast exam by your physician is recommended on an annual basis and results should be correlated with mammographic findings. MG 3D Screening Mammo W/Cad Bilateral CC and MLO view(s) were taken. CV view(s) were taken of the left breast. Prior study comparison: January 13, 2021, bilateral MG 3d diag mammo w/cad KELSI. July 04, 2018, bilateral MG 3d screening mammo w/cad. There are scattered fibroglandular densities. There are benign appearing round calcifications bilaterally, greater in the right breast. There is no discrete abnormality. ASSESSMENT: Benign, BI-RAD 2 RECOMMENDATION: Routine screening mammogram of both breasts in 1 year.
== END | disposition home or self-care (01) ==
LOC: RADMAMWWP 12:14
PROVIDERS: ATTEND Family Medicine
DX: Z12.31 Encounter for screening mammogram for malignant neoplasm of breast (principal); Z78.0 Asymptomatic menopausal state; Z80.3 Family history of malignant neoplasm of breast
CPT/HCPCS: 77063; 77067

== ENCOUNTER → 2022-07-28 | Outpatient (CLI) | payer MEDICARE | END | disposition home or self-care (01) | LOC: LABWHC1 07:51 | PROVIDERS: ATTEND Internal Medicine Endocrinology, Diabetes & Metabolism | DX: E03.8 Other specified hypothyroidism (principal) | CPT/HCPCS: 36415; 84443 ==

== ENCOUNTER → 2023-02-13 | Outpatient (CLI) | payer MEDICARE ==
[2023-02-13 19:43] LABS: HCT 35.1 % (37.2-46.3); HGB 11.1 g/dL (12.0-15.0); MCHC 31.6 g/dL (32.0-37.0); Mean Platelet Volume 9.2 fL (9.5-12.2); NRBC Per 100 WBC 0 /100 WBCS (0.0-0.0); Platelet Count 461 X 10*3/uL (140-440); RBC 3.58 X 10*6/uL (4.10-5.20); RDW 12.9 % (11.5-14.5); WBC 11.75 X 10*3/uL (4.50-10.00)
== END | disposition home or self-care (01) ==
LOC: LABWHC1 13:40
PROVIDERS: ATTEND Registered Nurse Wound Care
DX: D72.829 Elevated white blood cell count, unspecified (principal)
CPT/HCPCS: 36415; 85027

== ENCOUNTER → 2024-01-30 | Outpatient (CLI) | payer MEDICARE | END | disposition home or self-care (01) | LOC: LABWHC1 10:35 | PROVIDERS: ATTEND Internal Medicine Endocrinology, Diabetes & Metabolism | DX: E03.8 Other specified hypothyroidism (principal) | CPT/HCPCS: 36415; 84443 ==

== ENCOUNTER → 2024-05-02 | Outpatient (CLI) | payer OTHER ==
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
== END | disposition home or self-care (01) ==
LOC: RADCTMAIN 11:55
PROVIDERS: ATTEND Family Medicine
DX: Q40.1 Congenital hiatus hernia (principal)
CPT/HCPCS: 74176

== ENCOUNTER → 2024-10-14 | Outpatient (CLI) | payer MEDICARE | END | disposition home or self-care (01) | LOC: LABWHC1 13:57 | PROVIDERS: ATTEND Family Medicine | DX: Z20.822 Contact with and (suspected) exposure to COVID-19 (principal); B89 Unspecified parasitic disease | CPT/HCPCS: 87636 ==